=== PATIENT | male | born 1940 | race Caucasian/White ===

== ENCOUNTER 2019-02-11 20:33 | Emergency (ER) | payer MEDICARE, BC ==
[~2019-02-11] VITALS: Ht 170.2 cm; Wt 59.1 kg
[2019-02-11] MEDS ORDERED: LEVOTHYROXIN100 MC1 PO (20:50)
[2019-02-11] MEDS ORDERED: CITALOPRAM10 MG PO (20:50)
[2019-02-11] MEDS ORDERED: PEPCID20 MG PO (20:51)
--- NOTE | 2019-02-11 20:51 | NUR ---
BREATHING TREATMENT GIVEN WITH ALBUTEROL BACK TO BACK. BREATHING TECH. FOR GOOD DEPOSITION TO THE LUNGS.
[2019-02-11] MEDS ORDERED: FOLBEE PO (20:52)
[2019-02-11 20:59] LABS: HEMATOCRIT 37.3 % (39.0-50.0); HEMOGLOBIN 12.3 g/dl (14.0-18.0); IMMATURE GRANULOCYTES 0.4 % (0.0-5.0); MEAN CELL VOLUME 101.4 fL CALC (80.0-100.0); MEAN CORPUSCULAR HGB 33.4 pG CALC (26.0-32.0); NEUT# 4.22 thou/uL (1.82-7.42); RED BLOOD COUNT 3.68 mill/uL (4.70-6.10); RED CELL DISTRI WIDTH 12.6 % (11.5-15.5)
[2019-02-11 21:20] LABS: ALBUMIN 4.1 g/dL (3.2-5.0); ALKALINE PHOSPHATASE 89 u/l (38-126); ANION GAP 12 (6-22 (CALC)); BILIRUBIN, TOTAL 0.3 mg/dL (0.0-1.4); BUN 17 mg/dL (8-23); BUN/CREATININE RATIO 19 (12-20 (CALC)); CARBON DIOXIDE 29 mmol/l (22-30); CHLORIDE 103 mmol/l (95-108); CREATININE 0.9 mg/dL (0.7-1.3); GFR > 60 ML/MIN (>=60 (CALC)); GFR FOR AFR.AMER. > 60 ML/MIN (>=60 (CALC)); POTASSIUM 4.1 mmol/l (3.5-5.1); SGOT/AST 20 u/l (19-48); SODIUM 140 mmol/l (137-146); TOTAL PROTEIN 7.4 g/dL (6.3-8.2)
[2019-02-11 21:32] LABS: MYOGLOBIN 28 ng/mL (0 - 121)
[2019-02-11 21:35] VITALS: BP 124/73
[2019-02-11] MEDS ORDERED: ANORO ELLIPTA 61 AER IN (22:07)
[2019-02-11] MEDS ORDERED: PREDNISONE50 MG PO (22:07)
[2019-02-11] MEDS ORDERED: PROAIR HFA108 MCG/AC IN (22:07)
== END 2019-02-11 22:20 ==
LOC: ED 20:33
PROVIDERS: Family Medicine
DX: J44.1 Chronic obstructive pulmonary disease with (acute) exacerbation (principal); E03.9 Hypothyroidism, unspecified

== ENCOUNTER 2020-06-08 09:12 | Inpatient (IN) | payer MEDICARE, BC ==
[~2020-06-08] VITALS: Ht 170.2 cm; Wt 69.0 kg
[~2020-06-08 09:12] MED LIST: ANORO ELLIPTA 61 AER IN; CITALOPRAM10 MG PO; FOLBEE PO; LEVOTHYROXIN100 MC1 PO; PEPCID20 MG PO; PREDNISONE50 MG PO; PROAIR HFA108 MCG/AC IN
--- NOTE | 2020-06-08 10:00 | NUR ---
PT RESTING ON STRETCHER. RESP EVEN AND UNLABORED. SATS 90% RA. STATES HE WORE O2 OCCASIONALLY WHEN HE LIVED AT HOME BUT HAS NOT NEEDED IT IN THE MAXIM. HE HAS BEEN THERE A COUPLE OF MONTHS PER PT. STATES HE WAS NOT HUNGRY THIS MORNING AND THAT IS WHY HE DID NOT WANT TO EAT. PT IS A&OX3.
[2020-06-08 10:17] LABS: IMMATURE GRANULOCYTES 0.5 % (0.0-5.0); MEAN CELL VOLUME 103.9 fL CALC (80.0-100.0); MEAN CORPUSCULAR HGB 33.5 pG CALC (26.0-32.0); MEAN CORPUSCULAR HGB CONC 32.3 g/dL CAL (32.0-36.0); NEUT# 2.88 thou/uL (1.82-7.42); RED BLOOD COUNT 4.83 mill/uL (4.70-6.10); RED CELL DISTRI WIDTH 12.4 % (11.5-15.5)
[2020-06-08] MEDS ORDERED: B1 HIGH POTENC100 MG PO (10:18)
[2020-06-08] MEDS ORDERED: CETIRIZINE10 MG PO (10:18)
[2020-06-08] MEDS ORDERED: THERA M PLUS PO (10:20)
[2020-06-08 10:26] LABS: HEMATOCRIT 50.2 % (39.0-50.0); HEMOGLOBIN 16.2 g/dl (14.0-18.0)
[2020-06-08 10:43] LABS: ALKALINE PHOSPHATASE 62 u/l (38-126); BUN 27 mg/dL (8-23); BUN/CREATININE RATIO 24 (12-20 (CALC)); CHLORIDE 110 mmol/l (95-108); CREATININE 1.1 mg/dL (0.7-1.3); GFR > 60 ML/MIN (>=60 (CALC)); GFR FOR AFR.AMER. > 60 ML/MIN (>=60 (CALC)); POTASSIUM 4.2 mmol/l (3.5-5.1); SODIUM 140 mmol/l (137-146); TOTAL PROTEIN 7.6 g/dL (6.3-8.2)
--- NOTE | 2020-06-08 10:44 | NUR ---
EKG DONE PT WITHOUT APPARENT DISTRESS AT THIS TIME
[2020-06-08 10:46] LABS: ANION GAP 15 (6-22 (CALC)); BILIRUBIN, TOTAL 0.7 mg/dL (0.0-1.4); CARBON DIOXIDE 19 mmol/l (22-30); SGOT/AST 61 u/l (19-48)
--- NOTE | 2020-06-08 11:03 | NUR ---
PT REFUSED COVID AND FLU SWAB AWARE
--- NOTE | 2020-06-08 13:14 | NUR ---
PT ON THE EDGE OF THE BED PT REFUSES TO GO HIGHER UP DESPITE EDUCATION OF RISK OF FALLING
--- NOTE | 2020-06-08 14:47 | NUR ---
REPORT CALLED TO MS RAYNA VALENZUELA RN. SHE IS AWARE THAT MEDICATION AZITRHOMYCIN IS DELAY TO THIS NURSE ATTENDING OTHER SICK PATIENTS AND SHE WILL GIVE THE MEDICATION AFTER BOLUS IS DONE. PT IS HAS NO APPARENT DISTRESS AT THIS TIME
--- NOTE | 2020-06-08 15:00 | NUR ---
PT ARRIVED VIA WC TO [facility] ACCOMPANIED BY ED NURSE. A&O TO PERSON AND TIME. ORIENTED PT TO PLACE. WHEN ASKED WHERE HE LIVED HE SAID "[facility] ANYWHERE THAT YOU CAN THINK OF". STATES HE WEARS O2 VIA NC @3L PRN AT "HOME". LUISA SHERRI CALLED TO VERIFY, PER NURSE HE DOES WEAR O2 BUT IS UNSURE OF HOW MANY L/MIN. PT REPORTS BM "2 DAYS AGO NOT SURE", UNKOWN BY NURSE.PT REPORTS TO HAVE A "DECREASED APPETITE" BUT IS UNSURE. SKIN INTACT. FRONT END SPECIALIST IN PLACE, INITIAL READING SR 76. ASSESSMENT COMPLETED. DISCUSSED POC. PT VERABLIZED UNDERSTANDING. CALL LIGHT IN REACH. BED ALARM SET FOR SAFETY. CONTINUE TO MONITOR.
[2020-06-08 15:25] VITALS: BP 153/83
--- NOTE | 2020-06-08 18:40 | NUR ---
PT FOUND IN HALLWAY, CONFUSED, SOB NOTED, IV TAKEN OUT BY PT. O2 VIA RM @85%, O2 VIA NC @3L APPLIED. NEW IV INITIATED BY REJI VENEGAS.
[2020-06-08 20:35] VITALS: BP 141/81
--- NOTE | 2020-06-08 21:10 | NUR ---
ASSESSMENT COMPLETED AT THIS TIME. TELE MONITOR CONTACTS REPLACED AT THIS TIME. PT REFUSED LOVONOX SHOT AT THIS TIME. PT LOC TO SELF, AND TOWN. APPEARS SOMEWHAT CONFUSED TO CIRCUMSTANCE. BED ALARM AND CAMERA ARE ON FOR SAFETY MONITORING. DAY NURSES REPORTED EARLIER CONFUSION AND ROAMING THE HALLS, ALSO REPORTS THAT HE REMOVED IV AND DIVIDING MACHINE OPERATOR HELPER EARLIER. PT APPEARS CALM AT THIS TIME. REMINDED OF CALL LIGHT USAGE, PT DOES NOT RESPOND TO ORIENTATION.
--- NOTE | 2020-06-08 23:53 | NUR ---
PATIENT REFUSED MIDNIGHT VITALS. REPORTED TO NURSE.
[2020-06-08 23:55] VITALS: BP 147/75
--- NOTE | 2020-06-09 00:05 | NUR ---
PT SET OFF BED ALARM, PT VISUALIZED IN CAMERA ATTEMPTING TO GET OUT OF THE BED. UPON ENTERING THE ROOM, PT WAS SITTING ON THE SIDE OF THE BED. PT SOILED OF INCONTINENT URINE. BEDDING AND CLOTHES CHANGED, PT CLEANED OF INCONTINENT URINE. PT'S OWN CLOTHING PLACED IN BAG IN CABINET DUE TO BE SOILED OF URINE AND HOSPITAL GOWN PLACED ON PT. LEARNING CONSULTANT PLACED BACK ON PT. PO FLUIDS PROVIDED AND PT REMINDED OF CALL LIGHT USE. LIGHTS LEFT ON LOW FOR ORIENTATION. PT LEFT IN BED IN LOW FOWLERS POSITION WITH TWO BLANKETS FOR COMFORT.
--- NOTE | 2020-06-09 00:12 | NUR ---
PT CLEANED OF INCONTINENT URINE AT THIS TIME. PT TOLERATED WELL. V/S ASSESSED. DENIES ANY OTHER NEEDS AND ASSISTED COVERING WITH BLANKETS/REPORTS BEING COLD. BED ALARM AND CAMERA ON FOR SAFETY PRECAUTIONS.
[2020-06-09 04:12] VITALS: BP 156/71
--- NOTE | 2020-06-09 04:40 | NUR ---
BED ALARM SOUNDED AND PT VISUALIZED NOT IN THE BED VIA CAMERA. UPON ENTERING ROOM, PT WAS FOUND SITTING ON TOILET IN RESTROOM. I STAYED WITH PT FOR AWHILE, HE REPORTED WANTING TO SIT FOR AWHILE. I INSTRUCTED THE PT TO PULL THE RED CORD WHEN HE WAS READY TO GET UP, HE VERBALIZED AGREEMENT.
[2020-06-09 07:40] VITALS: BP 143/70
--- NOTE | 2020-06-09 07:40 | NUR ---
ASSESSMENT IS COMPLETED: IV SITE IS FREE FROM REDNESS OR EDEMA. HR IS REG,PULSES ARE STRONG X4, ABD IS SOFT WITH ACTIVE BS. BREATH SOUNDS ARE CLEAR BILATERALLY. TELE MONITOR IN PLACE. CONTINUE TO OSBERVE AND MONITOR
[2020-06-09 08:23] LABS: HEMATOCRIT 48.6 % (39.0-50.0); HEMOGLOBIN 15.9 g/dl (14.0-18.0); IMMATURE GRANULOCYTES 0.2 % (0.0-5.0); MEAN CORPUSCULAR HGB 33.7 pG CALC (26.0-32.0); MEAN CORPUSCULAR HGB CONC 32.7 g/dL CAL (32.0-36.0); NEUT# 2.94 thou/uL (1.82-7.42); RED BLOOD COUNT 4.72 mill/uL (4.70-6.10); RED CELL DISTRI WIDTH 12.5 % (11.5-15.5)
[2020-06-09 08:50] LABS: ALBUMIN 3.6 g/dL (3.2-5.0); ALKALINE PHOSPHATASE 59 u/l (38-126); BILIRUBIN, TOTAL 0.7 mg/dL (0.0-1.4); BUN 21 mg/dL (8-23); BUN/CREATININE RATIO 23 (12-20 (CALC)); C-REACTIVE PROTEIN 5.5 mg/dL (0-0.9); CHLORIDE 112 mmol/l (95-108); CREATININE 0.9 mg/dL (0.7-1.3); GFR > 60 ML/MIN (>=60 (CALC)); GFR FOR AFR.AMER. > 60 ML/MIN (>=60 (CALC)); POTASSIUM 4.4 mmol/l (3.5-5.1); SGOT/AST 58 u/l (19-48); SODIUM 142 mmol/l (137-146); TOTAL PROTEIN 6.5 g/dL (6.3-8.2)
[2020-06-09 08:57] LABS: ANION GAP 11 (6-22 (CALC)); CARBON DIOXIDE 23 mmol/l (22-30)
[2020-06-09 10:55] VITALS: BP 161/73
--- NOTE | 2020-06-09 12:00 | NUR ---
IV SITE IS FREE FROM REDNESS OR EDEMA. NO DISTRESS NOTED. PT IS RESTING IN BED WITH NO DISTRESS NOTED.
--- NOTE | 2020-06-09 12:54 | NUR ---
FAMILY FROM [place] [facility] CALLED AND CHECKED ON PT FOUND OUT FROM [facility] HE WAS HERE.
--- NOTE | 2020-06-09 13:03 | NUR ---
PT IS RESTING WITH EYES CLOSED. PER FAMILY PT DOES HAVE DEPRESSION.
[2020-06-09 15:15] VITALS: BP 173/79
--- NOTE | 2020-06-09 15:32 | NUR ---
O.T. Screen patient and at this time does not seem appropriate for O.T. or P.T. referral at this time.
--- NOTE | 2020-06-09 16:00 | NUR ---
PT IS RESTING IN BED NO APPETITE. ENCOURAGED TO DRINK FLUIDS. NOT WANTING TO EAT.
--- NOTE | 2020-06-09 16:20 | NUR ---
CHECKED WITH PT AND IS RESTING. INTRUCTED PT TO DRINK MORE FLUIDS. DUE TO DRYNESS ON HIS MOUTH.
[2020-06-09 19:10] VITALS: BP 151/75
--- NOTE | 2020-06-09 20:00 | NUR ---
REPORT RECEIEVED FROM DAY SHIFT. PT IN BED RESTING, A&O X 1, CONFUSED AND POSSIBLE SUN DOWNER. COOPERATIVE BUT DOES PULL AND TUG AT LINES. NO S/SX OF DISTRESS OR DISCOMFORT NOTED AT THIS TIME. TELE IN PLACE SHOWING SR WITH HR IN 60'S. #22G IN RAC, SALINE LOCKED- PATENT, CLEAN, DRY, AND DRESSING INTACT. WILL CONTINUE TO MONITOR.
[2020-06-09 23:50] VITALS: BP 155/77
--- NOTE | 2020-06-10 | NUR ---
PT IS RESTING IN BED, NO S/SX OF DISCOMFORT OR DISTRESSED NOTED AT THIS TIME, WILL CONTINUE TO MONITOR.
--- NOTE | 2020-06-10 04:00 | NUR ---
PT IS RESTING IN BED, NO S/SX OF DISCOMFORT OR DISTRESSED NOTED AT THIS TIME, WILL CONTINUE TO MONITOR.
[2020-06-10 04:45] VITALS: BP 164/74
[2020-06-10 06:39] LABS: MEAN CELL VOLUME 104.5 fL CALC (80.0-100.0); MEAN CORPUSCULAR HGB 33.4 pG CALC (26.0-32.0); RED BLOOD COUNT 5.54 mill/uL (4.70-6.10); RED CELL DISTRI WIDTH 12.6 % (11.5-15.5)
[2020-06-10 06:51] LABS: HEMATOCRIT 57.9 % (39.0-50.0); HEMOGLOBIN 18.5 g/dl (14.0-18.0)
[2020-06-10 07:05] LABS: ANION GAP 18 (6-22 (CALC)); BUN 21 mg/dL (8-23); BUN/CREATININE RATIO 24 (12-20 (CALC)); CARBON DIOXIDE 20 mmol/l (22-30); CHLORIDE 112 mmol/l (95-108); CREATININE 0.9 mg/dL (0.7-1.3); GFR > 60 ML/MIN (>=60 (CALC)); GFR FOR AFR.AMER. > 60 ML/MIN (>=60 (CALC)); POTASSIUM 4.8 mmol/l (3.5-5.1); SODIUM 144 mmol/l (137-146)
[2020-06-10 08:07] VITALS: BP 131/69
--- NOTE | 2020-06-10 08:07 | NUR ---
PT RESTING IN BED, NO SIGNS OF DISTRESS NOTED, RESP EVEN AND UNLABORED. PT ALERT AND ORIENTED X2, PAVEL RODRIGUEZ, DISCUSSED POC, PT HAS A FLAT AFFECT, PT VOICES NO NEEDS OR COMPLAINTS AT THIS TIME, PT NEEDS REINFORCMENT TO KEEP OXYGEN ON. ASSESSMENT COMPLETED, CALL LIGHT IN REACH,CONTINUE TO MONITOR.
[2020-06-10 10:50] VITALS: BP 136/69
--- NOTE | 2020-06-10 14:19 | NUR ---
PT RESTING IN BED, DISCUSSED IVF, PT VERBALIZED UNDERSTANDING. CALL LIGHT IN REACH,CONTINUE TO MONITOR.
--- NOTE | 2020-06-10 15:06 | NUR ---
PT RESTING IN BED WITH EYES CLOSED, EASILY AROUSED TO VERBAL STIMULI, DISCUSSED ANTIBIOTICS, PT AGREES, BED ALARM FOR SAFETY, CALL LIGHT IN REACH,CONTINUE TO MONITOR.
[2020-06-10 15:15] VITALS: BP 143/73
--- NOTE | 2020-06-10 19:35 | NUR ---
RECIEVED REPORT. PT RESTING IN SEMI FOLWERS POSITION. PT IS AWAKE, A&O X 3, VERY PLEASENT AND COOPERATIVE. ASSESSMENT COMPLETED & VS OBTAINED. RESP ARE NON-LABORED W/ NO S/SX OF DISCOMFORT OR DISTRESS PRESENT AT THIS TIME. LUNG SOUNDS ARE CLEAR. [address] @ 2L/MIN VIA NC, BUT DOES PULL IT OFF AT TIMES. NORMAL S1 & S2 HEART SOUNDS W/ REGULAR RATE & RHYTHM AND TELE IN PLACE SHOWING SB 54. RADIAL- BILAT STRONG AND BILAT PEDAL PULSES- PRESENT BUT WEAK WITH < 3 SEC CAP REFILL. #22G IN RAC- PATENT, CLEAN, DRY WITH DRESSING INTACT, NS 0.9% INFUSING @ 125ML/HR. PT DENIES ANY PAIN OR DISCOMFORT AT THIS TIME. SAFETY & ISOLATION MEASURE ARE IN PLACE, CALL LIGHT WITHIN REACH AND PT REMINDED TO CALL FOR ASSIST BEFORE GETTING UP. PT ON VISUAL MONITORING FOR SAFETY D/T RECENT EPISODES OF CONFUSION, ELEVATED FALL RISK D/T MULTIPLE LINES & CURRENT CONDITION. WILL CONTINUE TO MONITOR FOR COMFORT AND SAFETY.
[2020-06-10 20:45] VITALS: BP 157/74
[2020-06-11 00:10] VITALS: BP 145/63
--- NOTE | 2020-06-11 00:10 | NUR ---
PT IS RESTING IN BED, NO S/SX OF DISCOMFORT OR DISTRESSED NOTED AT THIS TIME, WILL CONTINUE TO MONITOR.
[2020-06-11 04:15] VITALS: BP 140/74
--- NOTE | 2020-06-11 05:21 | NUR ---
PT IS AWAKE LAYING BED IN SEMI-STEELE, NEEDING ASSISTING TO BATHROOM TO VOID. ONCE IN BED PT BEGAN HAVING A COUGHING SPASM AND HAVING DIFFICULTY SPEAKING, ELEVATED HOB RESP, GAVE INHALERS, BEGAN TO SETTLE DOWN, AND RESP ARE REGULAR AND NON-LABORED. NO FURTHER NEEDS EXPRESSED, NO S/SX OF DISTRESS OR DISCOMFORT, PT BACK IN BED RESTING. PT PLACED IN LOWEST POSITION W/ WHEELS LOCKED AND CALL LIGHT WITHIN REACH. WILL CONTINUE TO MONITOR.
[2020-06-11 07:11] LABS: IMMATURE GRANULOCYTES 0.6 % (0.0-5.0); MEAN CELL VOLUME 103.9 fL CALC (80.0-100.0); MEAN CORPUSCULAR HGB 33.3 pG CALC (26.0-32.0); MEAN CORPUSCULAR HGB CONC 32.1 g/dL CAL (32.0-36.0); NEUT# 2.54 thou/uL (1.82-7.42); RED BLOOD COUNT 4.86 mill/uL (4.70-6.10); RED CELL DISTRI WIDTH 12.5 % (11.5-15.5)
[2020-06-11 07:14] LABS: HEMATOCRIT 50.5 % (39.0-50.0); HEMOGLOBIN 16.2 g/dl (14.0-18.0)
[2020-06-11 07:26] LABS: ALBUMIN 3.6 g/dL (3.2-5.0); ALKALINE PHOSPHATASE 56 u/l (38-126); ANION GAP 10 (6-22 (CALC)); BILIRUBIN, TOTAL 0.6 mg/dL (0.0-1.4); BUN 23 mg/dL (8-23); BUN/CREATININE RATIO 27 (12-20 (CALC)); CARBON DIOXIDE 23 mmol/l (22-30); CHLORIDE 114 mmol/l (95-108); CREATININE 0.9 mg/dL (0.7-1.3); GFR > 60 ML/MIN (>=60 (CALC)); GFR FOR AFR.AMER. > 60 ML/MIN (>=60 (CALC)); POTASSIUM 4.7 mmol/l (3.5-5.1); SGOT/AST 46 u/l (19-48); SODIUM 142 mmol/l (137-146); TOTAL PROTEIN 6.6 g/dL (6.3-8.2)
[2020-06-11 07:29] LABS: C-REACTIVE PROTEIN 5.6 mg/dL (0-0.9)
[2020-06-11 10:00] VITALS: BP 124/54
--- NOTE | 2020-06-11 10:04 | NUR ---
pt lying in bed alert resp even and unlabored 02@2L via NC, denies pain, tolerated AM meds w/o difficulty, pt appears to be in no accute distress at this time
[2020-06-11 14:50] VITALS: BP 138/72
[2020-06-11 18:05] VITALS: BP 120/57
--- NOTE | 2020-06-11 19:42 | NUR ---
REPORT FROM JUANY DOBSON([facility]). ASSUMED PT CARE.
[2020-06-11 19:45] LABS: ANION GAP 12 (6-22 (CALC)); BUN 25 mg/dL (8-23); BUN/CREATININE RATIO 30 (12-20 (CALC)); CARBON DIOXIDE 22 mmol/l (22-30); CHLORIDE 113 mmol/l (95-108); CREATININE 0.9 mg/dL (0.7-1.3); GFR > 60 ML/MIN (>=60 (CALC)); GFR FOR AFR.AMER. > 60 ML/MIN (>=60 (CALC)); MAGNESIUM 2.8 mg/dL (1.6-2.3); POTASSIUM 4.4 mmol/l (3.5-5.1); SODIUM 142 mmol/l (137-146)
[2020-06-11 20:00] VITALS: BP 99/55
--- NOTE | 2020-06-11 21:57 | NUR ---
PT SOB AFTER AMBULATING TO BATHROOM WITH ASSISTANCE. PT ON 3L/M O2 VIA NC. RESPIRATIONS LABORED, O2 SATS CHECKED 89%. PRN INHALER ADMINISTERED. HOB ELEVATED TO 90 DEGREES. O2 INCREASED TO 4L/M VIA NC. SATS CURRENTLY 91-92%. PT VERY ANXIOUS AND SCARED. CALM REASSURANCE PROVIDED. LUNG SOUNDS DIMINISHED. CALL LIGHT WITHIN REACH. WILL CONTINUE TO MONITOR.
[2020-06-12] VITALS: BP 125/58
--- NOTE | 2020-06-12 01:55 | NUR ---
PT ASSISTED TO BATHROOM. BACK INTO BED PT BECAME SOB. O2 SATS 94% ON 4L/M VIA NC. PRN INHALER ADMINISTERED. ENCOURAGED BREATHING EXERCISES AND OFFERED CALM REASSURANCE. CALL LIGHT WITHIN REACH. WILL CONTINUE TO MONITOR.
[2020-06-12 04:00] VITALS: BP 127/62
[2020-06-12 05:53] LABS: HEMATOCRIT 48.6 % (39.0-50.0); HEMOGLOBIN 15.8 g/dl (14.0-18.0); IMMATURE GRANULOCYTES 0.8 % (0.0-5.0); MEAN CELL VOLUME 101.5 fL CALC (80.0-100.0); MEAN CORPUSCULAR HGB CONC 32.5 g/dL CAL (32.0-36.0); NEUT# 7.76 thou/uL (1.82-7.42); RED BLOOD COUNT 4.79 mill/uL (4.70-6.10); RED CELL DISTRI WIDTH 12.5 % (11.5-15.5)
[2020-06-12 06:09] LABS: ALBUMIN 3.6 g/dL (3.2-5.0); ALKALINE PHOSPHATASE 60 u/l (38-126); ANION GAP 14 (6-22 (CALC)); BILIRUBIN, TOTAL 0.6 mg/dL (0.0-1.4); BUN 23 mg/dL (8-23); BUN/CREATININE RATIO 27 (12-20 (CALC)); CARBON DIOXIDE 21 mmol/l (22-30); CHLORIDE 112 mmol/l (95-108); CREATININE 0.8 mg/dL (0.7-1.3); GFR > 60 ML/MIN (>=60 (CALC)); GFR FOR AFR.AMER. > 60 ML/MIN (>=60 (CALC)); POTASSIUM 4.1 mmol/l (3.5-5.1); SGOT/AST 44 u/l (19-48); SODIUM 144 mmol/l (137-146); TOTAL PROTEIN 6.7 g/dL (6.3-8.2)
--- NOTE | 2020-06-12 06:21 | NUR ---
PT RESTING IN BED. NO APPARENT DISTRESS NOTED. 02 @ 4L/M 02 VIA IL. SKI LIFT ATTENDANT IN PLACE. CALL LIGHT WITHIN REACH. WILL CONTINUE TO MONITOR.
[2020-06-12 08:20] VITALS: BP 144/69
--- NOTE | 2020-06-12 08:20 | NUR ---
ASSESSMENT IS COMPLETED: IV SITE IS FREE FROM REDNESS OR EDEMA. HR IS REG ,PULSES ARE STRONG X4, ABD IS SOFT WITH ACTIVE BS. CONITNUE TO OBSERVE AND MONITOR. TELE MONITOR IN PLACE.
[2020-06-12 10:30] VITALS: BP 92/65
--- NOTE | 2020-06-12 12:00 | NUR ---
PT IS SITTING IN THE CHAIR CONTINUE TO OSBERVE AND MONITOR.
--- NOTE | 2020-06-12 12:33 | NUR ---
IV SITE REMOVED DUE TO LEAKING
[2020-06-12 15:00] VITALS: BP 143/70
--- NOTE | 2020-06-12 15:50 | NUR ---
IV SITE REPLACED ON RAC AND THEN PT WENT BACK TO BED AND IV CAME OUT.
--- NOTE | 2020-06-12 16:30 | NUR ---
PT IS BACK IN TO BED.
--- NOTE | 2020-06-12 17:00 | NUR ---
IV SITE RESTARTED BY VEDA DOBSON. IN [facility] WITH #20 X2 ATTEMPTS.
[2020-06-12 20:00] VITALS: BP 148/79
--- NOTE | 2020-06-12 20:22 | NUR ---
PT MEDICATED AND ASSESSMENT COMPLETED AT THIS TIME. CALL LIGHT AT SIDE. PT REPORTS FEELING MILDLY SOB, OXYGEN SAT LEVEL 93% AT THIS TIME ON 3LNC. PT C/O FEELING ANXIOUS AND STATES THAT HE IS WAITING ON SOMETHING FOR ANXIETY. DAY NURSE HAS RECEIVED ORDER, WILL MEDICATE PT WHEN ORDERS RECEIVED FROM PHARMACY. TALKED WITH PT AND ATTEMPTED TO PROVIDED COMFORT AT THIS TIME. WILL CONTINUE TO MONITOR. ENCOURAGED PT TO CALL IF SOB WORSENS OR HE NEEDS ANY OTHER ASSISTANCE OR HAS OTHER CONCERNS, VERBALIZED UNDERSTANDING. CALL LIGHT AT SIDE AND BED ALARM IS ON FOR SAFETY REASONS.
--- NOTE | 2020-06-12 21:53 | NUR ---
MEDICATED PT FOR ANXIETY, PT IS NOW CALMLY LAYING IN BED ON HIS SIDE WITH NC IN PLACE @3L. NO S/O DISTRESS, DENIES FEELING SOB AT THIS TIME. CALL LIGHT AT SIDE.
[2020-06-13] VITALS (11 sets, daily range): BP systolic 112–182; BP diastolic 74–107
--- NOTE | 2020-06-13 01:40 | NUR ---
PT CALLED TO REPORT FEELING SOB, UPON ENTERING ROOM PT EXPRESSES THAT HE DOESN'T LIKE BEING ALONE AND HE WANTS SOMEONE WITH HIM. HE APPEARS ANXIOUS. I REASSURE HIM THAT WE ARE RIGHT OUTSIDE AT NURSES STATION AND IF HE NEEDS ANYTHING WE WILL BE RIGHT THERE. V/S ASSESSED. CALLED CT TO ASK IF THEY WERE ABLE TO TAKE PT FOR SCHEDULED CTA FROM [facility] THIS DAY. WILL TAKE PT DOWN, COOK 3 PASTRY'S NOTIFIED.
--- NOTE | 2020-06-13 01:50 | NUR ---
PT RETURNED FROM CTA, BACK IN BED, V/S ASSESSED AT THIS TIME.
[2020-06-13 05:47] LABS: HEMATOCRIT 48.1 % (39.0-50.0); IMMATURE GRANULOCYTES 1.3 % (0.0-5.0); MEAN CELL VOLUME 101.9 fL CALC (80.0-100.0); MEAN CORPUSCULAR HGB 33.9 pG CALC (26.0-32.0); MEAN CORPUSCULAR HGB CONC 33.3 g/dL CAL (32.0-36.0); NEUT# 6.25 thou/uL (1.82-7.42); RED BLOOD COUNT 4.72 mill/uL (4.70-6.10); RED CELL DISTRI WIDTH 12.9 % (11.5-15.5)
[2020-06-13 05:54] LABS: ALBUMIN 3.6 g/dL (3.2-5.0); ALKALINE PHOSPHATASE 61 u/l (38-126); ANION GAP 15 (6-22 (CALC)); BILIRUBIN, TOTAL 0.7 mg/dL (0.0-1.4); BUN 20 mg/dL (8-23); BUN/CREATININE RATIO 26 (12-20 (CALC)); C-REACTIVE PROTEIN 3.9 mg/dL (0-0.9); CARBON DIOXIDE 21 mmol/l (22-30); CHLORIDE 108 mmol/l (95-108); CREATININE 0.8 mg/dL (0.7-1.3); GFR > 60 ML/MIN (>=60 (CALC)); GFR FOR AFR.AMER. > 60 ML/MIN (>=60 (CALC)); POTASSIUM 4.5 mmol/l (3.5-5.1); SODIUM 140 mmol/l (137-146); TOTAL PROTEIN 6.6 g/dL (6.3-8.2)
[2020-06-13 06:04] LABS: SGOT/AST 84 u/l (19-48)
--- NOTE | 2020-06-13 09:00 | NUR ---
PT SEEN AT REST IN THE BED, ALERT AND ORIENTED X 3. PT WITH CLEAR BUT DIMINISHED LUNG SOUNDS, BECOMES DYSPNEIC WITH MINIMAL EXERTION. INITIAL SATS WERE 88% ON 3 LPM, SO BUMPED UP TO 4 LPM. RECHECK SHOWS 93%.
--- NOTE | 2020-06-13 11:30 | NUR ---
PT SEEN BY SERGIO DAVID AND DR BYERS THIS MORNING, AGREE THAT HE IS WORSE THAN YESTERDAY. PT NOW ON HIGH FLOW OXYGEN AT 10 LPM, SATS MID 90s. DR BYERS WANTS TO TRANSFER HIM TO ICU. PT AWARE AND AGREEABLE.
--- NOTE | 2020-06-13 12:45 | NUR ---
PT TAKEN BY BED TO ICU 8, REPORT WAS PROVIDED TO VEDA DOBSON PRIOR TO TRANSFER. PT REMAINS ON HIGH FLOW OXYGEN, SATS MID TO UPPER 90s.
--- NOTE | 2020-06-13 13:14 | NUR ---
REPORT RECEIVED FROM BRONSON WIGGINS. PT ARRIVED TO ROOM ICU 8 VIA BED AT 1249 WITH [facility] STAFF. ALERT AND ORIENTED X 3; SLIGHTLY ANXIOUS AND AGRICULTURAL AGENT PSYCHOLOGIST EDUCATIONAL'S HAND TIGHTLY. DENIES PAIN, SOB, NAUSEA. RESPIRATIONS EVEN AND UNLABORED ON 10L HUMIDIFIED OXYGEN VIA HIGH FLOW NC; DOES USE ACCESSORY MUSCLES TO BREATH. ORIENTED TO ROOM AND CONNECTED TO ATTACHMENTS. ASSESSMENT COMPLETED; LUNGS ARE CLEAR WITH EXPIRATORY COURSENESS TO RIGHT ANTERIOR. 20G IV SITE LAC; APPEARS HEALTHY AND FLUSHES. POC REVIEWED. PT ENCOURAGED TO VERBALIZE CONCERNS. SAFETY MEASURES IN PLACE; PT ON AIRBORNE/CONTACT PRECAUTIONS FOR POSITIVE COVID. CALL LIGHT SYSTEM REVIEWED AND WITHIN REACH.
--- NOTE | 2020-06-13 13:42 | NUR ---
BROTHER DENNISE AND SISTER BHUPENDRA UPDATED ON THE PHONE; QUESTIONS ANSWERED TO SATISFACTION.
--- NOTE | 2020-06-13 15:45 | NUR ---
PT MORE ANXIOUS; REMOVED FINGER PROBE FOR OXYGEN MONITORING AND BLOOD PRESSURE CUFF. WAVING TO NURSE AND ASKING FOR HELP STATING THAT HE FEELS LIKE HE CAN'T BREATH. RESPIRATIONS EVEN AND UNLABORED; SPO2 95% ON THE 10L. SCHEDULED VENTOLIN INHALER GIVEN ALONG WITH ATIVAN FOR ANXIETY. ROCEPHIN INFUSING AT THIS TIME. CALL LIGHT WITHIN REACH.
--- NOTE | 2020-06-13 17:47 | NUR ---
PT LESS ANXIOUS, BUT REMAINS RESTLESS AND AGAIN REMOVED OXYGEN PROBE AND BLOOD PRESSURE CUFF. DECLINES DINNER AT THIS TIME; TRAY LEFT AT BEDSIDE.
--- NOTE | 2020-06-13 21:00 | NUR ---
awake. confused. thinks he's [facility] reoriented. o2 @ director of cardiac rehabilitation off-replaced. has nonprod cough. instructed about cough etiquette. director of cardiac rehabilitation shows sinus ebnji pvcs hr 58. #20 lac saline lock. refused po fluids. voided incont. jalen care given. lorrie cortez. fall & air/contact precautions & bed alarm cont.
[2020-06-14] VITALS (16 sets, daily range): BP systolic 104–185; BP diastolic 65–91
--- NOTE | 2020-06-14 00:01 | NUR ---
eyes closed. nad. cardiac nurse practitioner shows sinus benji pvcs hr 50.
--- NOTE | 2020-06-14 02:00 | NUR ---
resting quietly. resps even & unlabored. o2 cont.
--- NOTE | 2020-06-14 04:00 | NUR ---
bed alarm sounding. pt standing @ bedside o2 off. sao2 84%. c/o sob. o2 replaced. assisted back to bed. o2 94%.
--- NOTE | 2020-06-14 06:00 | NUR ---
coughing. sao2 84%. after resting sao2 93%.
--- NOTE | 2020-06-14 08:00 | NUR ---
PT SEEN AT REST IN THE BED. HE IS NOT HUNGRY, SO BREAKFAST REMAINS AT BEDSIDE. PRODUCTIVE COUGH HEARD OCCASIONALLY, RESULTS IN WHEEZING THROUGHOUT LUNG CALDERON. PT IS ALERT AND ORIENTED X 3, ALTHOUGH PERHAPS A BIT CONFUSED AT TIMES. HIGH FLOW NC AT 10 LPM, PT SATS IN THE MID 90s.
--- NOTE | 2020-06-14 20:00 | NUR ---
PATIENT RESTING IN BED AT THIS TIME. NOT ANXIOUS. RESPIRATIONS EVEN O2 VIA N/C IN PLACE AT 10 LITER PER MINUTE. ALERT TO SELF. PLEASANT. NO VAD. ATTEMPTED #24 R HAND WITHOUT SUCCESS. TOLERATED WELL. DENIES PAIN. SKIN COOL AND DRY. POSITIVE FOR COVID. AIR/CONTACT PRECAUTIONS IN PLACE. BED IN LOW POSITION. CALL LIGHT WITHIN REACH.
--- NOTE | 2020-06-14 22:10 | NUR ---
PATIENT RESTING QUIETLY IN BED. NO ACUTE DISTRESS NOTED. LOVENOX GIVEN. TOLERATED WELL. BED IN LOW POSITION CALL LIGHT WITHIN REACH.
[2020-06-15] VITALS (17 sets, daily range): BP systolic 118–179; BP diastolic 65–96
--- NOTE | 2020-06-15 | NUR ---
RESPIRATORY CALLED. PATIENT PLACED ON NON-REBREATHER MASK. OXYGEN SATURATION MAINTAINING IN LOW 90S. NO DISTRESS OBSERVED. MONITOIRING.
--- NOTE | 2020-06-15 | NUR ---
PATIENT RESTING IN BED. O2 SATURATION MAINTAINING ABOVE 90%. NO COMPLAINTS. BED IN LOW POSITION. CALL LIGHT WITHIN REACH. MONITORING.
--- NOTE | 2020-06-15 02:00 | NUR ---
RESTING QUIETLY. O2 VIA NC IN PLACE. MAINTAINGING OXYGENATION IN THE 90S. NO ACUTE DISTRESS OBSERVED. MONITORING.
--- NOTE | 2020-06-15 04:12 | NUR ---
RESTING QUIETLY, SIDELYING POSITION. OXYGEN MAINTAINING IN 90S. NO ACUTE DISTRESS OBSERVED. MONITORING
[2020-06-15 05:54] LABS: HEMATOCRIT 47.4 % (39.0-50.0); HEMOGLOBIN 15.6 g/dl (14.0-18.0); IMMATURE GRANULOCYTES 1.2 % (0.0-5.0); MEAN CELL VOLUME 99.2 fL CALC (80.0-100.0); MEAN CORPUSCULAR HGB 32.6 pG CALC (26.0-32.0); MEAN CORPUSCULAR HGB CONC 32.9 g/dL CAL (32.0-36.0); NEUT# 5.94 thou/uL (1.82-7.42); RED BLOOD COUNT 4.78 mill/uL (4.70-6.10); RED CELL DISTRI WIDTH 12.1 % (11.5-15.5)
--- NOTE | 2020-06-15 06:00 | NUR ---
RESTING SEMI-FOWLERS. PLEASANT. CALM. O2 10 LITERS VIA N/C. OXYGEN SATURATION MAINTAINING IN THE 90S.
[2020-06-15 06:30] LABS: ALBUMIN 3.4 g/dL (3.2-5.0); ALKALINE PHOSPHATASE 58 u/l (38-126); ANION GAP 13 (6-22 (CALC)); BILIRUBIN, TOTAL 0.7 mg/dL (0.0-1.4); BUN 23 mg/dL (8-23); BUN/CREATININE RATIO 30 (12-20 (CALC)); C-REACTIVE PROTEIN 1.6 mg/dL (0-0.9); CARBON DIOXIDE 21 mmol/l (22-30); CHLORIDE 109 mmol/l (95-108); CREATININE 0.7 mg/dL (0.7-1.3); GFR > 60 ML/MIN (>=60 (CALC)); GFR FOR AFR.AMER. > 60 ML/MIN (>=60 (CALC)); POTASSIUM 4.4 mmol/l (3.5-5.1); SGOT/AST 53 u/l (19-48); SODIUM 139 mmol/l (137-146); TOTAL PROTEIN 6.4 g/dL (6.3-8.2)
--- NOTE | 2020-06-15 07:25 | NUR ---
REPORT RECEIVED FROM BRONSON DRAPER. PT RESTING IN BED SEMI FOWLERS; ALERT AND ORIENTED TO PERSON AND PLACE. DENIES PAIN. RESPIRATIONS EVEN AND UNLABORED ON 10L HIGH FLOW NC; PT VERY RESTLESS AND ANXIOUS. NO CURRENTLY IV SITE. SR WITH PVC'S ON STRATEGIC MANAGER. LUNGS ARE CLEAR; PRODUCTIVE COUGH NOTED. SAFETY MEASURES IN PLACE. CALL LIGHT WITHIN REACH.
--- NOTE | 2020-06-15 08:20 | NUR ---
DR. WARD AT BEDSIDE FOR EVAL.
--- NOTE | 2020-06-15 08:30 | NUR ---
NEW IV SITE TO RAC PLACED AT THIS TIME; PT TOLERATED WELL.
--- NOTE | 2020-06-15 09:01 | NUR ---
ATIVAN GIVEN IV WITH AM MEDS. PT TOOK PO MEDS WHOLE WITH WATER. SET UP FOR BREAKFAST, BUT PT DOES NOT FEED HIMSELF EVEN WITH ENCOURAGMENT. HE STATES, "HELP ME. NURSE PLEASE HELP ME." GIVEN A FEW BITES OF BREAKFAST WHICH HE EATS, BUT DOES NOT CONTINUE TO FEED HIMSELF EVEN WITH VERBAL CUES AND INSTRUCTION.
--- NOTE | 2020-06-15 11:00 | NUR ---
PT CONSTANTLY REMOVING TELEMETRY LEADS, OXYGEN, AND ALL ATTACHMENTS INCLUDING GOWN AND BRIEF. STAFF FREQUENTLY AT BEDSIDE TO REPLACE ALL ATTACHENTS AND INSTRUCT PT TO LEAVE EVERYTHING IN PLACE. PT VERBALIZES UNDERSTANDING AND APOLOGIZES, BUT IS FORGETFUL AND CONTINUES TO REMOVE WIRES.
--- NOTE | 2020-06-15 13:00 | NUR ---
PT HAS LEGS OUT OF THE BED AND STATES, "HELP ME, I CAN'T BREATH." OXYGEN HAS BEEN REMOVED BY PATIENT; EDUCATED THAT OXYGEN IS WHAT HELPS HIS BREATH. PT ALSO C/O THAT HE IS COLD, HOWEVER, HE REMOVED ALL HIS BLANKETS AND GOWN AND IS NAKED; EDUCATED THAT KEEPING HIS CLOTHING AND BLANKETS ON WOULD HELP HIM STAY WARM; PT UNABLE TO REMEMBER DUE TO COGNITIVE LIMITATIONS AT THIS TIME. NEW ORDER RECEIVED FOR A ONE TIME DOSE OF ATIVAN IV. PT REPOSITIONED BACK INTO BED WITH BLANKETS ON AND ATTACHMENTS INTACT.
--- NOTE | 2020-06-15 15:10 | NUR ---
ATIVAN GIVEN IV AT THIS TIME. ANTIBIOTICS AND REMDESIVIR HAVE INFUSING WITHOUT DIFFICULTY; IV SITE APPEARS HEALTHY AND FLUSHES. WILL CONTINUE TO MONITOR.
--- NOTE | 2020-06-15 18:07 | NUR ---
PT LOUDLY COUGHING AND HACKING. OXYGEN REMOVED AT THIS TIME; SPO2 85% ON ROOM AIR. NOTIFYING GUT SORTER HAT FORMING MACHINE OPERATOR.
--- NOTE | 2020-06-15 19:20 | NUR ---
PT IN BED, REMOVED O2 AND LEADS, REPLACED O2 AND LEADS, ENCOURAGED PT TO NOT REMOVE OXYGEN, PT PUSHING WRITERS HANDS AWAY, NO SIGNS OF DISTRESS NOTED, SPO2 INCREASED TO 94% ON 10L HI CARLITOS, DISCUSSED POC, PT REQUIRES REINFORCMENT, PT IS NOT COMPLAINT AT THIS TIME, ZYPREXA IM GIVEN. ASSESSMENT COMPLETED, CALL LIGHT IN REACH,CONTINUE TO MONITOR.
--- NOTE | 2020-06-15 20:00 | NUR ---
PT KEEPS REMOVING OXYGEN AND PULLING OFF LEADS AND BRIEF, SOON WIRES ARE REPLACED AND MEETING FACILITATOR LEAVES ROOM PT AGAIN REMOVES ALL LEADS AND OXYGEN. CALL LIGHT IN REACH, CONTINUE TO MONITOR.
--- NOTE | 2020-06-15 21:00 | NUR ---
CALL MADE TO ELECTRONIC GAME DEVELOPER CODING AND REIMBURSEMENT SPECIALIST, INFORMED THAT ZYPREXA GIVEN AT 1920 HAS NOT HELPED. PT CONTINUES TO PULL LINES AND PUSH AWAY STAFF HANDS WHEN ATTEMPTING TO REPLACE LEADS AND OXYGEN. ORDERS TO RESTRAIN PT OBTAINED.
--- NOTE | 2020-06-15 21:05 | NUR ---
PT RESTING IN BED, O2 IS ON PT'S CHIN, LEADS ARE OFF, BRIEF IS OFF, INFORMED PT THAT HE WILL BE RESTRAINED DUE TO HIS NON COMPLIANCE OF LEAVING HIS OXYGEN ON. PT REPOSITIONED AND PLACED ON SOFT WRIST RESTRAINTS, TOLERATED WELL, CALL LIGHT IN REACH,CONTINUE TO MONITOR.
--- NOTE | 2020-06-15 21:10 | NUR ---
CALL MADE TO PT'S BROTHER DENNISE AND NOTIFIED THAT PT WAS PLACED ON WRIST RESTRAINTS, BROTHER STATES," DO WHAT YOU HAVE TO DO." BROTHER UPDATED ON PT STATUS.
[2020-06-16] VITALS (16 sets, daily range): BP systolic 101–165; BP diastolic 54–94
--- NOTE | 2020-06-16 | NUR ---
PT RESTING IN BED, NO SIGNS OF DISTRESS NOTED, RESP EVEN AND UNLABORED. PT IS HAS HIS LEGS CROSSED IN BED, SOFT WRIST RESTRAINTS BILAT. CALL LIGHT IN REACH,CONTINUE TO MONITOR.
--- NOTE | 2020-06-16 04:00 | NUR ---
PT RESTING IN BED, NO SIGNS OF DISTRESS NOTED, RESP EVEN AND UNLABORED. CALL LIGHT IN REACH,CONTINUE TO MONITOR.
--- NOTE | 2020-06-16 05:06 | NUR ---
PT RESTING IN BED, PT SOMEHOW REMOVED O2 WHILE RESTRAINED. SPO2 DROPPED TO 79% 02 REPLACED. SYNTHROID AND WATER PROVIDED. PT TOLERATED WELL, VENTOLIN INHALER GIVEN. PT VOICES NO NEEDS OR COMPLAINTS AT THIS TIME, CALL LIGHT IN REACH,CONTINUE TO MONITOR.
[2020-06-16 06:24] LABS: HEMATOCRIT 51.8 % (39.0-50.0); IMMATURE GRANULOCYTES 1.3 % (0.0-5.0); MEAN CELL VOLUME 102.6 fL CALC (80.0-100.0); MEAN CORPUSCULAR HGB 33.7 pG CALC (26.0-32.0); MEAN CORPUSCULAR HGB CONC 32.8 g/dL CAL (32.0-36.0); NEUT# 8.88 thou/uL (1.82-7.42); RED BLOOD COUNT 5.05 mill/uL (4.70-6.10); RED CELL DISTRI WIDTH 12.4 % (11.5-15.5)
--- NOTE | 2020-06-16 06:45 | NUR ---
REPORT RECEIVED FROM KAVITHA VENEGAS. CARE ASSUMED.
[2020-06-16 06:55] LABS: ALBUMIN 3.7 g/dL (3.2-5.0); ALKALINE PHOSPHATASE 67 u/l (38-126); ANION GAP 16 (6-22 (CALC)); BUN 24 mg/dL (8-23); BUN/CREATININE RATIO 32 (12-20 (CALC)); CARBON DIOXIDE 19 mmol/l (22-30); CHLORIDE 110 mmol/l (95-108); CREATININE 0.8 mg/dL (0.7-1.3); GFR > 60 ML/MIN (>=60 (CALC)); GFR FOR AFR.AMER. > 60 ML/MIN (>=60 (CALC)); POTASSIUM 4.8 mmol/l (3.5-5.1); SGOT/AST 59 u/l (19-48); SODIUM 141 mmol/l (137-146); TOTAL PROTEIN 6.9 g/dL (6.3-8.2)
--- NOTE | 2020-06-16 07:30 | NUR ---
DR WARD AT BEDSIDE AT THIS TIME.
--- NOTE | 2020-06-16 07:50 | NUR ---
PT RESTING IN BED AWAKE AT THIS TIME. PT IS ALERT AND ORIENTED TO SELF. SHIFT ASSESSMENT COMPLETED AT THIS TIME. IV PATENT X1. PT IS RESTRAINED BILAT WRIST FOR PT SAFETY DUE TO HE PULLS OFF O2 AND DESATS. CALL LIGHT IN REACH. WILL CONTINUE TO MONITOR.
--- NOTE | 2020-06-16 10:00 | NUR ---
PT RESTING IN BED AWAKE AND WATCHING TV. VSS ON MONITOR. RESP ARE EVEN AND UNLABORED. NO DISTRESS NOTED. CALL LIGHT IN REACH. WILL CONTINUE TO MONITOR.
--- NOTE | 2020-06-16 12:22 | NUR ---
PT RESTING IN BED AWAKE AT THIS TIME. PT WITH A PRODUCTIVE COUGH. PT MEDICATED PER SEP. CALL LIGHT IN REACH. WILL CONTINUE TO MONITOR.
--- NOTE | 2020-06-16 14:26 | NUR ---
RT AT BEDSIDE FOR ABG.PT HAS INCREASED CONFUSION NOTED AT THIS TIME. WILL CONTINUE TO MONITOR.
--- NOTE | 2020-06-16 15:35 | NUR ---
PT IV NOTED TO BE LEAKING. RAC IV DC'D. #22 STARTED IN . PT TOLERATED WELL.
--- NOTE | 2020-06-16 16:40 | NUR ---
PT RESTING IN BED COMFORTABLY WITH WARM. VSS ON MONITOR. CALL LIGHT IN REACH. WILL CONTINUE TO MONITOR.
--- NOTE | 2020-06-16 17:15 | NUR ---
CALLED [facility] FOR THIS PT. SPOKE TO MJ AND WAS GIVEN CONFIRMATION NUMBER [id number].
--- NOTE | 2020-06-16 18:07 | NUR ---
PT RESTING IN BED WATCHING TV. RESP ARE EVEN AND UNLABORED. NO DISTRESS NOTED. CALL LIGHT IJN REACH. WILL CONTINUE TO MONITOR.
--- NOTE | 2020-06-16 19:30 | NUR ---
sitting on side of bed. cardiac cath lab technologist & o2 off-replaced. has nonprod cough. no resp distress. cardiac cath lab technologist shows sinus rhythm pvcs hr 84. #22 lt thumb saline lock. incont of urine. jalen care & diaper changed. fall & air/contact precautions cont.
--- NOTE | 2020-06-16 22:00 | NUR ---
eyes closed. no distress. pvc monitor shows sinus rhythm pvcs hr 80.
[2020-06-17] VITALS (17 sets, daily range): BP systolic 100–156; BP diastolic 47–82
--- NOTE | 2020-06-17 00:01 | NUR ---
eyes closed. no distress. athletic monitor shows sinus rhythm hr 74.
--- NOTE | 2020-06-17 02:00 | NUR ---
resting quietly. resps even & unlabored. nad. o2 cont.
--- NOTE | 2020-06-17 04:00 | NUR ---
eyes closed. nad. media monitor shows sinus rhythm hr 78.
--- NOTE | 2020-06-17 06:00 | NUR ---
no acute change in condition this shift.
--- NOTE | 2020-06-17 08:18 | NUR ---
PT RESTING QUIETLY ON BED, REFUSING BREAKFAST AT THIS TIME., VITAL SIGNS STABLE
--- NOTE | 2020-06-17 10:29 | NUR ---
PT GIVEN COMPLETE BED CHANGE AND BATH,
--- NOTE | 2020-06-17 12:57 | NUR ---
PT APPEARS TO BE CALMER THAN BEFORE. BLANKET GIVEN AFTER PULLING OFF CLOTHES AND MONITER LEADS FOR 3RD TIME THIS AM. VITAL SIGNS STABLE
--- NOTE | 2020-06-17 14:45 | NUR ---
CONSENT SIGNED AFTER VERBAL CONSENT BY PT FOR CENTRAL LINE. DR. WILLINGHAM CAME FROM ER TO PLACED CENTRAL LINE IN RIGHT GROIN AREA.
--- NOTE | 2020-06-17 16:32 | NUR ---
PT SLEEPING ON LEFT SIDE AT THIS TIME, VITAL SIGNS STABLE,
--- NOTE | 2020-06-17 20:00 | NUR ---
awake. remains confused. pt said "i don't know what's wrong with me." instructed pt about covid but doesn't undertsand. o2 cont per nc. pt has removed o2 several times & has been replace. cough is worse tonight. has prod cough of old blood tinged sputum. threat monitoring analyst shows sinus rhythm. rt groin tlc in place & saline locked. po fluids taken poor. voids per urinal & incont-diaper in place. fall & air/contact precautions cont.
--- NOTE | 2020-06-17 22:00 | NUR ---
awake. remains confused. voided per urinal. ekg monitor shows sinus rhythm hr78.
[2020-06-18] VITALS (15 sets, daily range): BP systolic 102–165; BP diastolic 58–94
--- NOTE | 2020-06-18 00:01 | NUR ---
awake. confused. o2 off-replaced. unable to reorient. bed alarm cont.
--- NOTE | 2020-06-18 02:00 | NUR ---
naps for short intervals. o2 cont. ink technician shows sinus rhythm hr 82.
--- NOTE | 2020-06-18 02:15 | NUR ---
central line dsg off-replaced.
--- NOTE | 2020-06-18 04:30 | NUR ---
blood drawn & sent to lab.
[2020-06-18 05:53] LABS: HEMATOCRIT 48.7 % (39.0-50.0); HEMOGLOBIN 16.1 g/dl (14.0-18.0); IMMATURE GRANULOCYTES 1.3 % (0.0-5.0); MEAN CELL VOLUME 100.2 fL CALC (80.0-100.0); MEAN CORPUSCULAR HGB 33.1 pG CALC (26.0-32.0); MEAN CORPUSCULAR HGB CONC 33.1 g/dL CAL (32.0-36.0); NEUT# 9.29 thou/uL (1.82-7.42); RED BLOOD COUNT 4.86 mill/uL (4.70-6.10); RED CELL DISTRI WIDTH 12.4 % (11.5-15.5)
--- NOTE | 2020-06-18 06:00 | NUR ---
slept little this shift. turn machine operator shows sinus rhythm.
[2020-06-18 06:25] LABS: ALBUMIN 3.4 g/dL (3.2-5.0); ALKALINE PHOSPHATASE 69 u/l (38-126); ANION GAP 13 (6-22 (CALC)); BILIRUBIN, TOTAL 1.2 mg/dL (0.0-1.4); BUN 27 mg/dL (8-23); BUN/CREATININE RATIO 29 (12-20 (CALC)); C-REACTIVE PROTEIN 2.7 mg/dL (0-0.9); CHLORIDE 109 mmol/l (95-108); CREATININE 0.9 mg/dL (0.7-1.3); GFR > 60 ML/MIN (>=60 (CALC)); GFR FOR AFR.AMER. > 60 ML/MIN (>=60 (CALC)); POTASSIUM 4.2 mmol/l (3.5-5.1); SGOT/AST 39 u/l (19-48); SODIUM 142 mmol/l (137-146); TOTAL PROTEIN 6.2 g/dL (6.3-8.2)
[2020-06-18 06:28] LABS: CARBON DIOXIDE 24 mmol/l (22-30)
--- NOTE | 2020-06-18 07:30 | NUR ---
PATIENT IN BED ALERT TO SELF AND REDIRECTABLE AT THIS TIME. O2 ON AT 10L. ALL SAFETY MEASURES ARE IN PLACE CALL LIGHT WITHIN REACH. PATIENT STATES WHEN ASKED IF HE IS HAVING PAIN PATIENT STATED "NO". CALL LIGHT WITHIN REACH SIDERAILS UP X2.
--- NOTE | 2020-06-18 09:30 | NUR ---
PATIENT IN BED AT THIS TIME O2 ON AT 10L ALERT TO SELF, SIDERAILS UP X 2 CALL LIGHT WITHIN REACH.
--- NOTE | 2020-06-18 09:43 | NUR ---
AT BEDSIDE DISCUSSING POC WITH PT.
--- NOTE | 2020-06-18 11:15 | NUR ---
PATIENT RESTING COMFORTABLE IN BED AT THIS TIME. 02 ON AT 10L. ALL SAFETY MEASURES ARE IN PLACE CALL LIGHT WITHIN REACH SIDERAILS UP X2. PATIENT HAS A NON-PRODUCTIVE COUGH AT THIS TIME.
--- NOTE | 2020-06-18 12:00 | NUR ---
PATIENT IN BED AT THIS TIME O2 REMAINS ON AT 10L. SPO2 IS 90%. PATIENT SELF FEEDING WITHOUT ASSISTANCE AND TOLERATING DIET WELL.
--- NOTE | 2020-06-18 14:00 | NUR ---
PATIENT ALERT TO SELF AT THIS TIME. O2 ON AT THIS TIME AT 10 L. PATIENT DENIES ANY PAIN. ALL SAFETY MEASURES ARE IN PLACE CALL LIGHT NEAR. CENTAL LINE (TRIPLE LUMEN) INTACT AND FLUSHING WITHOUT RESISTANCE. CALL LIGHT NEAR SIDERAILS UP X 2.
--- NOTE | 2020-06-18 15:05 | NUR ---
PATIENT IN BED AT THIS TIME CALL LIGHT NEAR SIDERAILS UP X 2. PATIENT DENIES ANY PAIN AT THIS TIME. PATIENT REPOSITIONED AT THIS TIME.
--- NOTE | 2020-06-18 15:51 | NUR ---
PATIENT IN BED AT THIS TIME. ALERT TO SELF. 02 ON AT 10 L AT THIS TIME. CENTRAL LINE (TRIP LUMEN) PATENT AND FLUSH WITHOUT RESISTANCE. CALL LIGHT WITHIN REACH, SIDERAILS UP X 2
--- NOTE | 2020-06-18 17:30 | NUR ---
PATIENT RESTING IN BED AT THIS TIME. O2 REMAINS ON AT 10L, ALL SAFETY MEASURES ARE IN [place] CALL LIGHT WITHIN REACH, SIDERAILS UP X2
--- NOTE | 2020-06-18 18:10 | NUR ---
PATIENT RESTING IN BED AT THIS TIME. O2 REMAINS IN PLACE AT THIS TIME AT 10L. ALL SAFETY MEASURES ARE IN PLACE CALL LIGHT WITHIN REACH.
--- NOTE | 2020-06-18 19:45 | NUR ---
awake. o2 off-replaced. remains confused. branch assistant shows sinus rhythm hr 82. rt groin tlc saline lock in place & flushes well. po fluids encouraged & juan carlos fair. voids incont. diaper changed. fall & air/contact precautions cont.
--- NOTE | 2020-06-18 20:35 | NUR ---
robitussin 10cc po given for cough.
--- NOTE | 2020-06-18 22:00 | NUR ---
eyes closed. no distress. [employer] assistant principal shows sinus rhythm hr 60.
[2020-06-19] VITALS (20 sets, daily range): BP systolic 105–164; BP diastolic 55–93
--- NOTE | 2020-06-19 00:01 | NUR ---
eyes closed. nad. o2 cont. groundwater monitoring technician shows sinus rhythm hr 62.
--- NOTE | 2020-06-19 02:00 | NUR ---
resting quietly. resps even & unlabored. nad. o2 cont.
--- NOTE | 2020-06-19 04:00 | NUR ---
resting quietly. resps even & unlabored. nad. rn cardiac rehab shows sinus benji hr 50.
--- NOTE | 2020-06-19 06:00 | NUR ---
eyes closed. nad. bus monitor shows sinus benji hr 50.
--- NOTE | 2020-06-19 07:05 | NUR ---
PATIENT IN BED AT THIS TIME O2 ON AT 10L. PATIENT ALERT TO SELF ONLY. ALL SAFETY MEASURES ARE IN PLACE CALL LIGHT WITHIN REACH SIDERAILS UP X 2. WHEN ASKED PATIENT STATES HE HAS NO PAIN AT THIS TIME. TRIPLE LUMEN IN R GROIN INTACT AND FLUSHING. NO IV SITE S/S OF INFECTION NOTED AT THIS TIME.
--- NOTE | 2020-06-19 09:00 | NUR ---
PATIENT RESTING QUIETLY IN BED EYES OPEN AND DENIES ANY PAIN. [address] AT 10L. ALL SAFETY MEASURES ARE IN PLACE CALL LIGHT WITHIN REACH SIDERAILS UP X 2.
--- NOTE | 2020-06-19 11:50 | NUR ---
PATIENT RESTING IN BED CALL LIGHT WITHIN REACH O2 ON AT 10L PATIENT ALERT TO SELF DENIES ANY PAIN WHEN ASKED AT THIS TIME.
--- NOTE | 2020-06-19 14:04 | NUR ---
PATIENT IN BED AT THIS TIME. O2 REMAINS ON AT 10L. PATIENT DENIES ANY PAIN AT THIS TIME. PATIENT TRIPLE LUMEN FLUSHED WITHOUT ISSUES AND BLOOD RETURN AVAILABLE. PATIENT INCONTINENT OF URINE AND CHANGED AND REPOSTIONED AT THIS TIME. CALL LIGHT WITHIN REACH SIDERAILS UP X 2.
--- NOTE | 2020-06-19 15:27 | NUR ---
PATIENT COUGHING A NON PRODUCTIVE COUGH AT THIS TIME MEDICATED PATIENT WITH 10ML OF GUAIFENESIN AT THIS TIME FOR HIS COUGH.
--- NOTE | 2020-06-19 15:50 | NUR ---
PATIENT IN BED RESTING WITH EYES OPEN AT THIS TIME. PATIENT STATES COUGH IS BETTER. PATIENT DENIES SHORTNESS OF BREATH AND ALL SAFETY PRECAUTIONS ARE IN PLACE AT THIS TIME.
--- NOTE | 2020-06-19 16:08 | NUR ---
PATIENT RESTING AT THIS TIME ALL SAFETY MEASURES ARE IN PLACE O2 ON 10L AT THIS TIME SPO2 94%. CALL LIGHT WITHIN REACH SIDERAILS UP X2.
--- NOTE | 2020-06-19 18:12 | NUR ---
PATIENT SITTING UP IN BED EATING AT THIS TIME. O2 AT 10L REMAINS ON AND SPO2 IS 90 % TIMES NEED TO REDIRECT PATIENT TO LEAVE TUBING ALONE AND IN PLACE. PATIENT DENIES ANY PAIN AT THIS TIME AND DOES EXHIBITS DRY NON PRODUCTIVE COUGH INTERMITTINGLY. ALL SAFETY MEASURES ARE IN PLACE CALL LIGHT WITHIN REACH AND SIDERAILS UP X 2. PATIENT IN STABLE CONDITION FOR ON COMING NURSE.
--- NOTE | 2020-06-19 20:02 | NUR ---
ASSESSMENT COMPLETED. VSS. PT. IS ON 11LITERS/MIN HF PER NC AND SPO2 92%; WILL CONTINUE TO MONITOR. PT. IS ON AIR MATTRESS AND ASSISTED TO REPOSITION IN BED. NO DISTRESS NOTED; NON-PRODUCTIVE COUGH NOTED. PT. CLEANED OF A MODERATE INCONTINENCE OF URINE. PO FLUIDS OFFERED. CALL LIGHT IS IN REACH. WILL CONTINUE TO MONITOR.
[2020-06-20] VITALS (18 sets, daily range): BP systolic 96–155; BP diastolic 38–85
--- NOTE | 2020-06-20 | NUR ---
RESTING IN BED ON RIGHT SIDE WITH NO DISTRESS NOTED; SLEEPING; SPO2 92%. WILL CONTINUE TO MONITOR.
--- NOTE | 2020-06-20 04:00 | NUR ---
RESTING IN BED WITH O2 INFUSING @11LITERS/MIN HF SPO2 WNL. WILL CONTINUE TO MONITOR.
--- NOTE | 2020-06-20 05:14 | NUR ---
AM LABS DRAWN VIA TLC AND FLUSHED PER PROTOCOL; SPO2 91% WILL CONTINUE TO MONITOR.
[2020-06-20 05:45] LABS: HEMATOCRIT 46.4 % (39.0-50.0); HEMOGLOBIN 15.3 g/dl (14.0-18.0); IMMATURE GRANULOCYTES 2.8 % (0.0-5.0); MEAN CELL VOLUME 101.8 fL CALC (80.0-100.0); MEAN CORPUSCULAR HGB 33.6 pG CALC (26.0-32.0); NEUT# 8.93 thou/uL (1.82-7.42); RED BLOOD COUNT 4.56 mill/uL (4.70-6.10); RED CELL DISTRI WIDTH 12.8 % (11.5-15.5)
[2020-06-20 06:08] LABS: ALBUMIN 3.1 g/dL (3.2-5.0); ALKALINE PHOSPHATASE 71 u/l (38-126); ANION GAP 9 (6-22 (CALC)); BUN 26 mg/dL (8-23); BUN/CREATININE RATIO 25 (12-20 (CALC)); C-REACTIVE PROTEIN 3.9 mg/dL (0-0.9); CARBON DIOXIDE 22 mmol/l (22-30); CHLORIDE 111 mmol/l (95-108); GFR > 60 ML/MIN (>=60 (CALC)); GFR FOR AFR.AMER. > 60 ML/MIN (>=60 (CALC)); POTASSIUM 3.7 mmol/l (3.5-5.1); SGOT/AST 33 u/l (19-48); SODIUM 139 mmol/l (137-146); TOTAL PROTEIN 5.9 g/dL (6.3-8.2)
[2020-06-20 06:14] LABS: BILIRUBIN, TOTAL 0.6 mg/dL (0.0-1.4)
--- NOTE | 2020-06-20 07:04 | NUR ---
RECEIVED REPORT FROM NURSE MTZ AT THIS TIME. PATIENT RESTING IN BED 02 ON AT 10 L RESPIRATIONS ARE UNLABORED AND ALL SAFETY MEASURES ARE IN PLACE.
--- NOTE | 2020-06-20 08:00 | NUR ---
PATIENT ASSESSES AT THIS TIME SEE INTERVENTION. PATIENT ALERT TO SELF AND REDIERECTABLE. 02 REMAINS ON AT 10L AT THIS TIME SPO2 IS 96%. PATIENT DENIES ANY PAIN AT THIS TIME CALL LIGHT WITHIN REACH.
--- NOTE | 2020-06-20 10:00 | NUR ---
PATIENT RESTING IN BED RESPIRATIONS EASY AND UNLABORED O2 ON 10L HI-FLOW. SPO2 IS 97% AT THIS TIME ROUNDING ON PATIENT. ALL SAFETY MEASURES ARE IN PLACE CALL LIGHT WITHIN REACH.
--- NOTE | 2020-06-20 11:55 | NUR ---
PATIENT RESTING IN WITH EYES OPEN RESPIRATIONS EASY AND UNLABORED. O2 REMAINS ON HI-FLOW AT 10L. CENTRAL LINE INTACT AND ALL LUMENS FLUSH WITHOUT RESISTANCE AT THIS TIME AND BLOOD RETURN WITHOUT RESISTANCE RETUNRN IN LUMEN. ALL SAFETY MEASURES ARE IN PLACE SIDERAILS UP X2
--- NOTE | 2020-06-20 14:05 | NUR ---
PATIENT IN BED AT THIS TIME LAYING ON LEFT SIDE. PATIENT INCONTIENT OF MODERATE AMOUNT OF URINE AT THIS TIME. PATIENT NICKOLAS CARE GIVEN AND CHANGED. PATIENT REMAINS ON HI-FLOW O2 AT 10L AND SPO2 IS 92% AT THIS TIME. ALL SAFETY MEASURES ARE IN PLACE CALL LIGHT WITHIN REACH.
--- NOTE | 2020-06-20 18:00 | NUR ---
PATIENT LAYING IN BED AT THIS TIME FEEDING SELF DINNER. PATIENT COUGHING AT THIS TIME A NON PRODUCTIVE COUGH. PATIENT MEDICATED FOR COUGH PER DR. ORDERED MEDICATION. HI-FLOW O2 REMAINS ON AT 10L. PATIENT DENIES ANY PAIN AT THIS TIME. ALL SAFETY MEASURES ARE IN PLACE CALL LIGHT WITHIN REACH. PATIENT STABLE AT THIS TIME FOR ON COMING SHIFT.
--- NOTE | 2020-06-20 20:41 | NUR ---
PT. ANXIOUS AND MEDICATED WITH ORDERED PRN ATIVAN; WILL REASSESS. ASSISTED PT. ONTO BEDPAN FOR BM. SPO2 97% WITH PT. ON 10LITERS/MIN HF NC. ASSESSMENT COMPLETED. RIGHT GROIN TLC INTACT AND FLUSHES WELL WITH BLOOD RETURN. RECORD RETRIEVAL SPECIALIST IN PLACE. CALL LIGHT IS IN REACH. WILL CONTINUE TO MONITOR.
--- NOTE | 2020-06-20 23:00 | NUR ---
INHALOR PROVIDED. NO DISTRESS NOTED. PO FLUIDS OFFERED. CALL LIGHT IS IN REACH.
[2020-06-21] VITALS (13 sets, daily range): BP systolic 105–142; BP diastolic 55–77
--- NOTE | 2020-06-21 01:00 | NUR ---
RESTING IN BED WITH ETES CLOSED;RESP. EVEN AND UNLABORED. CALL LIGHT IS IN REACH; WILL CONTINUE TO MONITOR. SPO2 WNL.
--- NOTE | 2020-06-21 03:00 | NUR ---
O2 TITRATED DOWN TO 8LITERS/MIN PER NC HF; SPO2 92%; WILL CONTINUE TO MONITOR. CALL LIGHT IS IN REACH. WILL CONTINUE TO MONITOR.
--- NOTE | 2020-06-21 05:16 | NUR ---
SPO2 91%-92%. PT. WITH MOIST COUGH AND MEDICATED WITH ORDERED PRN ROBITUSSIN AND INHALOR. ENCOURAGED TO CALL FOR ANY NEEDS. PO FLUIDS OFFERED. CALL LIGHT IS IN REACH. WILL CONTINUE TO MONITOR.
--- NOTE | 2020-06-21 05:30 | NUR ---
PT. INCONTINENT OF LARGE AMOUNT OF URINE , NICKOLAS CARE GIVEN, AND NEW LINENS APPLIED WELL GOWN AND BRIEF. RE-APPLIED O2 PT. REMOVED IT AND PT. DID DESAT WITHOUT O2 ON AND DECREASED TO 85% ON RA AND BACK UP TO 92% ON O2 @8LITERS/MIN HF NC.
--- NOTE | 2020-06-21 07:00 | NUR ---
PT REPORT RECEIVED FROM MEDICAL DIAGNOSTIC RADIOGRAPHER. PT LAYING ON RIGHT SIDE, RESTING QUIETLY ON BED, STILL CONFUSED AND TRYING TO PULL OFF CARDIAC LEADS.
--- NOTE | 2020-06-21 09:36 | NUR ---
DR. CROSS WANTS TO TRY AND WEAN PT DOWN TO 4 ON OXYGEN SATS LONG HE STAYS ABOVE 90%
--- NOTE | 2020-06-21 10:21 | NUR ---
PT RESTING QUIETLY, STATES IS NOT HUNGRY AND REFUSED BREAKFAST.
--- NOTE | 2020-06-21 11:01 | NUR ---
PTS SHAYLAECE CALLED BHUPENDRA AND ASKED TO SPEAK WITH PT. PORTABLE PHONE TAKEN IN AND HELD UP PT CONVERSED WITH CHANDRAKANT AND TOLD HER HE WAS FEELING BETTER. PTS VITAL SIGNS STABLE AT THIS TIME
--- NOTE | 2020-06-21 12:27 | NUR ---
REPORT GIVEN TO SANDY COLVIN [facility]
--- NOTE | 2020-06-21 12:43 | NUR ---
PT EATING LUNCH MEAL, SITTING UP IN BED. APPEARS TO BE A LITTLE MORE ALERT, AFTER TALKING WITH FAMILY.
--- NOTE | 2020-06-21 12:53 | NUR ---
PTS SATS DROPPING TO HIGH 80'S, PLACED BACK UP TO 6 L PER NC, AND SATS WENT UP TO 93%
--- NOTE | 2020-06-21 15:40 | NUR ---
PTS SATS IN LOW 80'S, TRYING TO GET UP OUT OF BED ON OWN. PLACED PT BACK ONTO BED, PLACED NC BACK IN NARES, PT CONTINUES TO PULL OFF THE NC, THEN SATS DROP DOWN AND PT BEGINS COUGHING.
--- NOTE | 2020-06-21 16:59 | NUR ---
PT LAYING IN BED ON BACK, WARM BLANKETS GIVEN PER REQUEST. SATS REMAIN 90% LONG PT KEEPS NC IN NARES.
--- NOTE | 2020-06-21 18:09 | NUR ---
PT RESTING QUIETLY ON BED, LIGHTS OUT, DENIES ANY COMPLAINTS AT THIS TIME. VITAL SIGNS STABLE
--- NOTE | 2020-06-21 18:25 | NUR ---
PTS SATS DOWN TO 83, WENT INTO ROOM PT HAD REMOVED NC, TAKEN OFF CARDIAC MONITER LEADS, AND TAKEN OFF GOWN AND BRIEFS. PLACED PT BACK ON BED.
--- NOTE | 2020-06-21 19:30 | NUR ---
ASSESSMENT COMPLETED. PT. ALERT TO SELF ONLY. SPO2 92% AND O2 @5LITERS/MIN HF NC. DENIES NEEEDS/PAIN. NO DISTRESS NOTED. SAFETY PRECAUTIONS IN PLACE AND BED ALARM ON. ENCOURAGED TO CALL FOR ANY NEEDS. CALL LIGHT IS IN REACH. WILL CONTINUE TO MONITOR.
--- NOTE | 2020-06-21 22:01 | NUR ---
SPO2 DOWN TO 88% AND TITRATED BACK UP TO 7LITERS/MIN PER HF NC AND SPO2 BACK UP TO 93%. INHALOR GIVEN. CALL LIGHT IS IN REACH.
--- NOTE | 2020-06-22 00:01 | NUR ---
CLEANED OF AN INCONTINENCE OF URINE; NICKOLAS CARE GIVEN AND NEW BRIEF APPLIED PT. NON-COOPERATIVE WITH STAFF. O2 REMAINS AT 7LITERS/MIN [facility].
[2020-06-22 04:00] VITALS: BP 126/65
--- NOTE | 2020-06-22 05:20 | NUR ---
PT. SLEEPING AND AWAKENED FOR AM LABS AND MEDS; RIGHT GROIN TLC INTACT AND FLUSHES WELL, NO BLOOD RETURN FOR AM LABS THIS TIME, AND SENIOR COMMUNICATIONS ENGINEER AT BEDSIDE AND OBTAINED LABS. PT. CLEANED OF A MODERATE INCONTINENCE OF URINE; NICKOLAS CARE GIVEN, AND NEW PAD AND BRIEF APPLIED. SPO2 94% ON HF NC @7LITERS/MIN. FRESH WATER PROVIDED. CALL LIGHT IS IN REACH.
[2020-06-22 05:45] LABS: HEMATOCRIT 47.3 % (39.0-50.0); HEMOGLOBIN 15.8 g/dl (14.0-18.0); MEAN CELL VOLUME 100.6 fL CALC (80.0-100.0); MEAN CORPUSCULAR HGB 33.6 pG CALC (26.0-32.0); MEAN CORPUSCULAR HGB CONC 33.4 g/dL CAL (32.0-36.0); NEUT# 7.87 thou/uL (1.82-7.42); RED BLOOD COUNT 4.7 mill/uL (4.70-6.10); RED CELL DISTRI WIDTH 12.8 % (11.5-15.5)
[2020-06-22 06:09] LABS: ALBUMIN 2.7 g/dL (3.2-5.0); ALKALINE PHOSPHATASE 82 u/l (38-126); ANION GAP 10 (6-22 (CALC)); BUN 21 mg/dL (8-23); BUN/CREATININE RATIO 27 (12-20 (CALC)); CARBON DIOXIDE 22 mmol/l (22-30); CHLORIDE 110 mmol/l (95-108); CREATININE 0.8 mg/dL (0.7-1.3); GFR > 60 ML/MIN (>=60 (CALC)); GFR FOR AFR.AMER. > 60 ML/MIN (>=60 (CALC)); POTASSIUM 4.3 mmol/l (3.5-5.1); SGOT/AST 33 u/l (19-48); SODIUM 138 mmol/l (137-146); TOTAL PROTEIN 5.4 g/dL (6.3-8.2)
[2020-06-22 06:28] LABS: BILIRUBIN, TOTAL 1.1 mg/dL (0.0-1.4); C-REACTIVE PROTEIN 16.3 mg/dL (0-0.9)
[2020-06-22 08:30] VITALS: BP 120/51
--- NOTE | 2020-06-22 10:23 | NUR ---
PT LAYING ON BED, REFUSED TO EAT BREAKFAST THIS AM, REFUSING TO KEEP NC ON, SATS WILL DROP DOWN TO MID 80'S WHEN PT HAS NC OFF AND IN THE 90'S WITH IT ON ON 8 LITRE. DECREASING O2 TO 6 AT THIS TIME TO SEE WHERE O2 STAYS
[2020-06-22 12:30] VITALS: BP 120/51
--- NOTE | 2020-06-22 14:30 | NUR ---
PT SLEEPING AT THIS TIME, VITAL SIGNS STABLE, O2 REMAINS OFF AND SATS ARE 90%
--- NOTE | 2020-06-22 16:49 | NUR ---
PT RESTING QUIETLY ON BED, CHANGED BRIEFS, PT TAKES OFF NC SOON IT IS PUT BACK ON HIM.
[2020-06-22 17:12] VITALS: BP 135/60
--- NOTE | 2020-06-22 19:45 | NUR ---
RESTIGN IN BED. PATIENT REMOVED O2, SAT 89% O2 REPLACED AT 5 L HF NC AND O2 SAT PICKED UP TO 97% DYSPNEIC WITH EXERTION. BREATH SOUNDS CLEAR IN UPPER LOBES, DIMINISHED IN BILATERAL BASES. RIGHT FEMORAL TLC IN PLACE, DSG CDI. LIQUOR BLENDER SHOWS SR. PATIENT INCONTINENT OF URINE, NICKOLAS-CARE PROVIDED AND BRIEF CHANGED. EXPLAINED PLAN OF CARE. CALL MANE IN REACH.
[2020-06-22 20:00] VITALS: BP 99/66
--- NOTE | 2020-06-22 22:00 | NUR ---
RESTING QUIETLY IN BED. RESP NON-LABORED AT REST. SR ON MONITOR NOTED TO HAVE SHORT RUNS OF INVERTED P WAVES.
[2020-06-23] VITALS (7 sets, daily range): BP systolic 88–131; BP diastolic 49–74
--- NOTE | 2020-06-23 00:15 | NUR ---
RESTING WITH EYES CLOSED. RESP NON-LABORED AT REST. O2 SAT 90% ON 5 L O2 HFNC.
--- NOTE | 2020-06-23 02:09 | NUR ---
INCONTINENT AGAIN OF URINE. VSS. MONITOR SR AT TIMES HAS INVERTED T WAVES.
--- NOTE | 2020-06-23 04:00 | NUR ---
RESTING WITH EYES CLSOED. RSP NON-LABORED.
--- NOTE | 2020-06-23 06:00 | NUR ---
PATIENT HAS SLEPT WELL TONIGHT. CALM AND COOPERATIVE. VSS.
--- NOTE | 2020-06-23 09:00 | NUR ---
PT IS AWAKE, ALERT, INTERACTIVE, CONFUSED. LUNGS CLEAR BUT DIMINISHED THROUGHOUT. PT USES NC AT 5 LPM, BUT REMOVES IT WITHOUT THINKING AND APOLOGIZES WHEN IT IS REPLACED. NO SHORTNESS OF BREATH, NO ATTEMPTS TO GET OOB THIS MORNING.
--- NOTE | 2020-06-23 16:38 | NUR ---
PT HAS REMAINED IN THE BED THE ENTIRE SHIFT THUS FAR, NO COMPLAINTS OR DISTRESS NOTED.
--- NOTE | 2020-06-23 19:45 | NUR ---
awake. nad. o2 cont per nc. paving crew foreman shows sinus rhythm pvcs hr 72. rt groin tlc in place & saline locked. po fluids encouraged & taken fair. voids incont. pericare given. diaper changed. fall & air/contact precautions & bed alarm cont.
--- NOTE | 2020-06-24 00:01 | NUR ---
eyes closed. nad. classroom monitor shows sinus rhythm hr 62.
--- NOTE | 2020-06-24 04:00 | NUR ---
eyes closed. nad. telemetry monitor shows sinus rhythm hr 68.
[2020-06-24 04:50] VITALS: BP 129/56
--- NOTE | 2020-06-24 05:30 | NUR ---
unable to draw from rt groin site.
[2020-06-24 08:00] VITALS: BP 111/56
--- NOTE | 2020-06-24 09:00 | NUR ---
PT SEEN AT REST IN THE BED, NOT A MORNING PERSON. PT WITH CLEAR YET DIMINISHED LUNGS, 5 LPM NC. PT INCONTINENT OF URINE, RESISTS CHANGE. RIGHT FEMORAL TLC, UNABLE TO DRAW FROM EITHER PORT. PT APPEARS MORE AWAKE TODAY, IS ABLE TO EXPRESS HIMSELF MORE CLEARLY.
[2020-06-24 11:00] VITALS: BP 117/61
--- NOTE | 2020-06-24 13:19 | NUR ---
PT CONTINUES AT REST IN THE BED, NO CHANGE IN STATUS. PT CONTINUES TO REFUSE MOST MEALS, EATING MINIMALLY ONLY WHEN FED.
[2020-06-24 16:00] VITALS: BP 134/71
[2020-06-24 19:50] VITALS: BP 125/66
--- NOTE | 2020-06-24 19:56 | NUR ---
ASSESSMENT COMPLETED. PT. IS ALERT TO SELF ONLY. RIGHT GROIN TLC INTACT AND SL, FLUSHES WELL, NO BLOOD RETURN; DRESSING CHANGED TO CENTRAL LINE. PT. IS DRY AT THIS TIME, NO INCONTINENCE NOTED. TEMP OF 99.9 AND MEDICATED WITH ORDERED TYLENOL, WILL REASSESS. REPOSITIONED IN BED AND BED ALARM SET FOR SAFETY PRECAUTIONS. CALL LIGHT IS IN REACH.
--- NOTE | 2020-06-24 23:00 | NUR ---
ATTEMPTED TO GET LABS ORDERED FROM AM, PT. BECAME AGGTITATED AND REFUSED TO ALLOW STAFF TO GET LABS OR CHANGE HIS BRIEF, WILL ATTEMPT AGAIN AT A LATER TIME. ALSO DELINED INHALOR. CALL LIGHT IS IN REACH. BED ALARM ON.
[2020-06-25] VITALS (9 sets, daily range): BP systolic 91–131; BP diastolic 57–77
--- NOTE | 2020-06-25 04:30 | NUR ---
PT. CLEANED OF A LARGE INCONTINENCE OF URINE; NICKOLAS CARE PROVIDED; PT. IS NOT COOPERATIVE WITH STAFF AND VERBALLY ABUSIVE TOWARDS STAFF.PT. IS RE-EDUCATED AND RE-ORIENTED ON NEED FOR ASSISTANCE WITH CARE AND WHERE HE IS. BED ALARM ON. O2 ON 4LITERS.MIN HF AND SPO2 97%.
--- NOTE | 2020-06-25 07:00 | NUR ---
REPORT RECEIVED FROM EDGE BRUSHER, PT IS SLEEPING AT THIS TIME, PT REMAINS ON 02 AT 4 L PER N/C. VITAL SIGNS STABLE
--- NOTE | 2020-06-25 10:00 | NUR ---
PT REMAINS SLEEPING, REFUSED BREAKFAST, STATES DOESNT WANT TO BE BOTHERED, WHEN I TRIED TO GET HIM TO EAT EVEN A LITTLE, HE SAID LOUDER,"I TOLD YOU i DONT WANT TO BE BOTHERED, NOW LEAVE"
--- NOTE | 2020-06-25 12:34 | NUR ---
PT REFUSED TO EAT LUNCH, REFUSED TO SIT UP IN BED AND GET BED BATH.
--- NOTE | 2020-06-25 13:51 | NUR ---
PT REMAINS CALM, WARM BLANKET GIVEN PER REQUEST. STILL DOES NOT WANT TO EAT.
--- NOTE | 2020-06-25 15:16 | NUR ---
PT REMAINS IN BED, SR HEART RATE IN THE 70'S, SATS 93-95 WHEN PT KEEPS OXYGEN NC ON. REFUSING TO ALLOW ME TO CHANGE BRIEFS, STATES JUST LEAVE ME THE HELL ALONE. SWATTING AT YOUR HANDS TO KEEP YOU FROM TURNING HIM.
--- NOTE | 2020-06-25 15:49 | NUR ---
SPOKE WITH DENNISE TIAN WHO IS THE POA FOR PT . THEY LIVE IN [facility], AND HE STATES THAT HE WOULD LIKE TO SPEAK TO THE WHO IS TAKING CARE OF PT. ABOUT PLAN OF CARE. ANJELICA STATES HE HAS BEEN AT [facility] FOR OVER A YEAR AND HALF AND IS ON O2 THERE, WITH A PORTABLE TANK. HE BELIEVE THAT HE COULD PROBABLY GO BACK TO [place] INSTEAD OF GOING INTO [place]. ADVISED ANJELICA THAT I WOULD CONTACT CASE MANAGEMENT AND THEY COULD SPEAK TO HIM ABOUT POSSIBILITIES.
--- NOTE | 2020-06-25 16:37 | NUR ---
CHANGED PT BRIEF AND GAVE HIM PARTIAL BATH, AND PT APPEARS TO BE MORE AWAKE, REACHING FOR ICED TEA AND ASKING FOR SOMETHING TO EAT. GAVE HIM SOME PUDDING, TO TIDE HIM OVER UNTIL DINNER TRAY. PT APPEARS TO BE MORE LIKE HIS USUAL SELF, SMILING AND THANKING STAFF WHEN EVER THEY HELP HIM.
--- NOTE | 2020-06-25 17:36 | NUR ---
PT. SITTING UP EATING DINNER TRAY WITH GOOD APETITE FOR HIM. SMILING AND APPEARS TO BE INCREASED AWARENESS AND AWAKE
--- NOTE | 2020-06-25 20:07 | NUR ---
RECEIVED REPORT FROM NURSE KIRK, PATIENT CURRENTLY RESTING IN BED, RESTING ON AIR MATRESS, ALERT ONLY TO SELF, LUNG SOUNDS DIMINISHED, HYPOACTIVE BOWEL SOUNDS, VITALS TAKEN AND RECORDED, HAS A TRIPLE LUMEN IJ ON T GROIN, ALL LUMEN FLUSHES WELL NO RESISTANCE BUT UNABLE TO DRAW BLOOD FROM ALL LUMEN, PATIENT CURRENTLY DRY, POX AT 88% MAINTAINING ON 3LPM, BUMPED O2 TO 5LPM WITH SAT 91-92 %, NO DISCOMFORTS NOTED, STATED WANTED TO SLEEP, CALLL LIGHT AT REACH.
--- NOTE | 2020-06-25 23:06 | NUR ---
PATIENT APPEARS TO BE SLEEPING EASY TO AROUSE, DUE INHALER GIVEN, PATIENT WAS INCONTINENT OF URINE, PERICARE GIVEN, REFUSED TO HAVE BED BATH AT THIS TIME, STATED "ITS TOO COLD, I HATE TO BE COLD" WARM BLANKETS PROVIDED PATIENT WENT BACK TO SLEEP AFTER.WILL CONTINUE TO MONITOR.
--- NOTE | 2020-06-26 01:23 | NUR ---
PATIENT GETTING AGITATED, DECORATIVE CUTTING MACHINE TENDER CURRENTLY FIXING PILATES COORDINATOR, REMAINS ON TOSSING AND TURNING, PATIENT STATES TO LEAVE HIM ALONE AND THAT HE IS COLD, BLANKETS GIVEN, WILL CONTINUE TO MINITOR.
--- NOTE | 2020-06-26 04:30 | NUR ---
PATIENT RESTING IN BED BREATHING UNLABORED, PATIENT DRY AT THIS TIME, NO DISCOMFORTS NOTED, REMAINS ON AIR/ CONTACT PRECAUTIONS CALL LIGHT AT REACH.
[2020-06-26 05:12] VITALS: BP 103/60
--- NOTE | 2020-06-26 06:07 | NUR ---
PATIENT CHECKED FOR INCONTINENCE, PATIENT IS DRY AT THIS TIME, WARM BLANKETS PROVIDED,
--- NOTE | 2020-06-26 06:55 | NUR ---
report rec'd care assumed
[2020-06-26 07:35] VITALS: BP 112/75
--- NOTE | 2020-06-26 07:35 | NUR ---
pt resting with eyes closed, arouses to verbal stimuli, refuses am meal does take medication with OJ, o2 cont per nc pt requires frequent reminders to keep o2 on. tele monitor reading sinus rhythm pvcs hr 64. rt groin tlc in place & saline locked. po fluids encouraged & taken fair. voids incont. brief dry at this time, offered am bathand pt refused, will re attepmt later in shift. fall & air/contact precautions & bed alarm cont.
--- NOTE | 2020-06-26 09:09 | NUR ---
pt resting, no coplaints offered, call williamson wipaolon reach,e asily visible from nurses station for safety bed alarm in use, call williamson within reach
--- NOTE | 2020-06-26 09:30 | NUR ---
Physical therapy at bedside for treat and eval pt refused and states "adios" to therapist.
--- NOTE | 2020-06-26 09:44 | NUR ---
PT STRONGLY REFUSED PT EVALUATION. REPORTED TO SN.
--- NOTE | 2020-06-26 10:32 | NUR ---
pt resting with eyes closed no complaints offered, O2 on at 2l via NC, will continue to monitor.
--- NOTE | 2020-06-26 11:30 | NUR ---
Pt restingin bed with eyes closed arouses easily to verbal stimuli, o2 at 2L since 1015 with sats maintained 902-94% pt requires frequent reminders to keep O2 and saturation probe on, copperative but forgetful, pt again refuses lunch, brief remains dry. will continue to monitor
[2020-06-26 12:00] VITALS: BP 100/73
--- NOTE | 2020-06-26 12:45 | NUR ---
Pt resting in bed, again offered, bath / ADL care pt refused, offered to heat afternoonmeal pt declines, comfort measures provided, continue on 2l with sats maintained.
--- NOTE | 2020-06-26 13:30 | NUR ---
Pt again refuses adl care or bath, will try again later, pt's brother called earlier, connected him with Case Mgmt for discharge plan discussion
--- NOTE | 2020-06-26 15:21 | NUR ---
pt uses inhaler as ordered, TLC flushed per order without incident, pt declines adl care and bath again, requested drink and water provided, pt refuses meal and any other care, call williamson within reach
--- NOTE | 2020-06-26 15:33 | NUR ---
pt refused to work with therapy again educated pt regarding d/c plan and pt repeats "I don't know what you want me to do I'm not ready for therapy this is all news to me, reminded pt that I have addressed it with him multiple times all day and pt states well I don't recall that. Pt very polite but non cooperative with therapy and adl care, will continue to monitor and try to get pt to cooperate.
[2020-06-26 16:04] VITALS: BP 136/61
--- NOTE | 2020-06-26 16:26 | NUR ---
FRESH WATER PROVIDED, AND VS OBTAINED, PT TOLERATED WELL, CONTINUES TO REQUIRE FREQUENT REMINDERS TO KEEP O2 IN NOSE SATS ON ROOM AIR 89-92, NO S/S OF DISTRESS NOTED, WILL CONTINUE TO MONITOR.
--- NOTE | 2020-06-26 17:25 | NUR ---
PT ENCOURAGED TO EAT PM MEAL BUT AGAIN REFUSES, OFFERED SET UP ASSIST, HELP WITH FEEDING ETC, PT STILL REFUSES. WILL CONTINUE TO MONITOR.
--- NOTE | 2020-06-26 18:06 | NUR ---
PT INCONTINENT OF URINE, REFUSES NICKOLAS CARE BUT DOES ALLOW BRIEF CHANGE, COMFROT MEASURES PROVIDED PT TOLERATES/ALLOWS, WILL CONTINUE TO MONITOR,
[2020-06-26 19:40] VITALS: BP 117/65
--- NOTE | 2020-06-26 19:40 | NUR ---
awakens easily. pleasant & coop. o2 off. instructed pt to replace it. pt complied. desk monitor shows sinus rhythm pvcs hr 75. rt groin tlc in place & flushes well. po fluids taken fair. diaper dry. fall & air/contact precautions cont.
[2020-06-27] VITALS (7 sets, daily range): BP systolic 107–118; BP diastolic 56–72
--- NOTE | 2020-06-27 00:01 | NUR ---
eyes closed. nad. telemetry monitor shows sinus rhythm pvcs hr 64.
--- NOTE | 2020-06-27 04:00 | NUR ---
hall monitor shows sinus rhythm hr 64.
--- NOTE | 2020-06-27 05:30 | NUR ---
awakens easily. incont of urine. am care given, diaper placed, then up to chair. juan carlos well.
--- NOTE | 2020-06-27 11:21 | NUR ---
06/16/20 Attempted eval again but patient refused
--- NOTE | 2020-06-27 12:00 | NUR ---
PATIENT EATING LUMCH NO DOMPLAINTS OR CONCERNS AT THIS TIME AWAITING PLACEMENT. PATIENT STILL FIDGETING WITH CORDS AABD PROBES, BED IN LOWEST POSTION AND CALL MANE IN REACH
--- NOTE | 2020-06-27 14:52 | NUR ---
2ND ATTEMPT TO DRAW BLOOD FROM PATIENT. PATIENT REFUSED. TRIPLE LUMEN NOT RETURNING BLOOD.
--- NOTE | 2020-06-27 16:41 | NUR ---
PATIENT REFUSED CLEANING SOILED BRIEFS UP. PATIENT ALSO TAKING OFF ALL MONITORS
--- NOTE | 2020-06-27 18:32 | NUR ---
PATIENT ASLEEP. BED IN LOWEST POSTION AND CALL MANE IN REACH
--- NOTE | 2020-06-27 19:40 | NUR ---
awakens easily. o2 off. instructed pt to replace & pt complied. nad. property assessment monitor shows sinus rhythm pac pvcs hr 70. rt groin tlc in place & saline locked. po fluids taken poor. incont of urine. pericare given & diaper changed. bed alarm, fall & air/contact precautions cont.
--- NOTE | 2020-06-27 22:30 | NUR ---
derrek lares called this blog writer. updated on pts condition.
--- NOTE | 2020-06-28 00:01 | NUR ---
monitoring and evaluation advisor shows sinus rhythm hr 62.
[2020-06-28 04:00] VITALS: BP 128/55
--- NOTE | 2020-06-28 04:00 | NUR ---
laboratory monitor shows sinus rhythm hr 64.
--- NOTE | 2020-06-28 05:10 | NUR ---
lab here. blood drawn.
[2020-06-28 05:33] LABS: HEMATOCRIT 42.6 % (39.0-50.0); HEMOGLOBIN 14.4 g/dl (14.0-18.0); MEAN CELL VOLUME 100.7 fL CALC (80.0-100.0); MEAN CORPUSCULAR HGB CONC 33.8 g/dL CAL (32.0-36.0); RED BLOOD COUNT 4.23 mill/uL (4.70-6.10); RED CELL DISTRI WIDTH 13.3 % (11.5-15.5)
[2020-06-28 05:49] LABS: ALKALINE PHOSPHATASE 107 u/l (38-126); ANION GAP 9 (6-22 (CALC)); BILIRUBIN, TOTAL 0.9 mg/dL (0.0-1.4); BUN 14 mg/dL (8-23); BUN/CREATININE RATIO 14 (12-20 (CALC)); CARBON DIOXIDE 22 mmol/l (22-30); CHLORIDE 109 mmol/l (95-108); GFR > 60 ML/MIN (>=60 (CALC)); GFR FOR AFR.AMER. > 60 ML/MIN (>=60 (CALC)); POTASSIUM 4.3 mmol/l (3.5-5.1); SGOT/AST 41 u/l (19-48); SODIUM 136 mmol/l (137-146); TOTAL PROTEIN 5.9 g/dL (6.3-8.2)
--- NOTE | 2020-06-28 06:15 | NUR ---
inc of urine. jalen care given. diaper changed.
--- NOTE | 2020-06-28 07:13 | NUR ---
PT REPORT RECEIVED, PT RESTING QUIETLY ON STRETCHER.
[2020-06-28 08:00] VITALS: BP 119/53
--- NOTE | 2020-06-28 08:37 | NUR ---
SPOKE WITH REBECCA FROM [facility], SHE STATES WITH PT HAVING COPD, HE HAD OXYGEN IN HIS ROOM ALL THE TIME, BUT VERY SELDOM USED IT. STATES BEFORE COMING IN TO HOSPITAL HIS DIAGNOSIS WAS FAILURE TO THRIVE, ALL HE WANTED TO DO WAS STAY IN HIS ROOM, WATCHING TV, ATE VERY LITTLE. SHE WANTS TO COME VISIT HIM, ADVISED THAT I WILL CHECK WITH MY MANAGER CONVENTION AND RETURN A CALL BACK TO HER TO LET HER KNOW IF THAT IS ALLOWED.
--- NOTE | 2020-06-28 09:12 | NUR ---
ADMINISTRATION STATES THEY JUST SENT OFF SWAB YESTERDAY TO [facility] FOR PATRICIAID, AND WOULD PREFER HER TO WAIT UNTIL TEST COMES BACK BEFORE REBECCA COULD COME VISIT.
--- NOTE | 2020-06-28 09:18 | NUR ---
PT SITTING UP IN CHAIR, ATE 50% OF BREAKFAST. WATCHING TV, APPEARS TO BE POLITE AT THIS TIME. WILL NOT KEEP ON OXYGEN, SATS DROP TO LOW 70'S, BUT WHEN PT PUTS OXYGEN BACK ON WILL GO UP TO LOW OP'S.
--- NOTE | 2020-06-28 11:52 | NUR ---
MONTY FROM CASE MANAGENT STATES TALKED TO ANJELICA FOR PT AND THEY THINK HE CAN GO BACK TO [facility], MONTY STATES SHE WILL CALL REBECCA AT [facility] AND EXPLAIN THAT THE DRZaheer AND HER FEEL THAT THE PT WOULD BENEFIT FROM BEING AT THE REHAB FOR AWHILE. SHE WILL GET BACK WITH THIS SALESPERSON HEARING AIDS WHEN A DECISION HAS BEEN MADE. EBONY HOGAN NOTIFIED.
--- NOTE | 2020-06-28 13:49 | NUR ---
PT UNSTEADY ON LEGS THIS WATERSHED ENGINEER PLACED PT BACK INTO BED. WARM BLANKETS GIVEN PER PT REQUEST. PT SLEEPING AT THIS TIME. AWAITING PHONE CALL FROM CASE MANAGEMENT TO START PROCEEDINGS TO TRANSFER PT TO [facility] PER CASE MANAGEMENT.
--- NOTE | 2020-06-28 15:04 | NUR ---
CASE MANAGEMENT RETURNED CALL AND STATES THAT POA HAS AGREED TO PT BEING PLACED IN REHAB AT THIS TIME. POA CALLED AND WANTED TO SPEAK TO PT, PORTABLE PHONE TAKEN IN AND PT TALKING AT THIS TIME.
[2020-06-28] MEDS ORDERED: OXY1 (15:21)
--- NOTE | 2020-06-28 16:43 | NUR ---
SPOKE WITH MELISSA AT [facility] FOR REPORT. CALLED AND SPOKE WITH [facility], IT WILL BE ABOUT AN HOUR BEFORE THEY CAN COME AND BARREL LAPPER PT.
--- NOTE | 2020-06-28 18:04 | NUR ---
[facility] HERE FOR TRANSFER TO [facility], PT WATCH AND INHALER SENT WITH PT, CALLED [facility] AND GAVE AN UPDATE TIME OF ARRIAL
--- NOTE | 2020-06-28 18:44 | NUR ---
[facility] AT TO PLACE A RETURN ON AIR MATTRESS. SPOKE TO [facility] AND WAS GIVEN CONFIRMATION NUMBER [phone].
== END 2020-06-28 18:00 | DRG 177 ==
LOC: ED 09:12 → ED-I 13:23 → ED 13:41 → MS2 13:42 → ICU 06-13 12:49
PROVIDERS: Family Medicine; Nurse Practitioner; Nurse Practitioner Family; ADMIT Internal Medicine; ATTEND Internal Medicine
PROC: 06HY33Z Insertion of Infusion Device into Lower Vein, Percutaneous Approach (ICD-10-PCS; principal; 2020-06-09)
PROC: XW043E5 Introduction of Remdesivir Anti-infective into Central Vein, Percutaneous Approach, New Technology Group 5 (ICD-10-PCS; 2020-06-12)
DX: U07.1 COVID-19 (principal); J12.89 Other viral pneumonia; J96.01 Acute respiratory failure with hypoxia; G93.49 Other encephalopathy; E86.0 Dehydration; R45.1 Restlessness and agitation; J43.9 Emphysema, unspecified; E03.9 Hypothyroidism, unspecified; K21.9 Gastro-esophageal reflux disease without esophagitis; F32.9 Major depressive disorder, single episode, unspecified; J30.2 Other seasonal allergic rhinitis; Z78.1 Physical restraint status; Z99.81 Dependence on supplemental oxygen; Z79.899 Other long term (current) drug therapy
CPT/HCPCS: G0378; J1650; J2060; Q9967; S0166

== ENCOUNTER 2021-07-20 07:31 | Inpatient (IN) | payer MEDICARE, BC ==
[2021-07-20] VITALS (10 sets, daily range): BP systolic 98–163; BP diastolic 56–94
[~2021-07-20] VITALS: Ht 170.2 cm; Wt 70.0 kg
[~2021-07-20 07:31] MED LIST changes: +B1 HIGH POTENC100 MG PO; +CETIRIZINE10 MG PO; +OXY1; +THERA M PLUS PO
--- NOTE | 2021-07-20 07:47 | NUR ---
PATIENT TO ROOM VIA EMS AND PHYSICIAN AT BEDSIDE FOR EVAL
--- NOTE | 2021-07-20 08:20 | NUR ---
RT AT BEDSIDE, BIPAP INITIATED
--- NOTE | 2021-07-20 08:29 | NUR ---
PT PRESENTED TPO ED VIA EMS ON NRB WITH INCREASED WOB. COPD EXCERBATION TREATED WITH DUONEB X 1 AND 5MG ALBUTEROL NEBIULIZED. BIPAP INITIATED AND PT PLACED ON SUITABLE PARAMTERS. ADEOLA WELL AT THIS TIME. RESEARCH HYDRAULIC ENGINEER TO MONITOR.
[2021-07-20 08:34] LABS: IMMATURE GRANULOCYTES 0.2 % (0.0-5.0); MEAN CELL VOLUME 101.4 fL CALC (80.0-100.0); MEAN CORPUSCULAR HGB 34.2 pG CALC (26.0-32.0); MEAN CORPUSCULAR HGB CONC 33.7 g/dL CAL (32.0-36.0); NEUT# 6.71 thou/uL (1.82-7.42); RED BLOOD COUNT 4.97 mill/uL (4.70-6.10); RED CELL DISTRI WIDTH 12.5 % (11.5-15.5)
[2021-07-20 08:48] LABS: HEMATOCRIT 50.4 % (39.0-50.0)
[2021-07-20 08:49] LABS: ALKALINE PHOSPHATASE 108 u/l (38-126); ANION GAP 21 (6-22 (CALC)); BUN 17 mg/dL (8-23); BUN/CREATININE RATIO 15 (12-20 (CALC)); CARBON DIOXIDE 20 mmol/l (22-30); CHLORIDE 101 mmol/l (95-108); CREATININE 1.1 mg/dL (0.7-1.3); GFR > 60 ML/MIN (>=60 (CALC)); GFR FOR AFR.AMER. > 60 ML/MIN (>=60 (CALC)); SGOT/AST 50 u/l (19-48); SODIUM 139 mmol/l (137-146)
[2021-07-20 08:56] LABS: TOTAL PROTEIN 9.5 g/dL (6.3-8.2)
--- NOTE | 2021-07-20 09:30 | NUR ---
RESTING QUIETLY, TOLERATING BIPAP WITHOUT DIFFICULTY, DENIES NEEDS
--- NOTE | 2021-07-20 09:43 | NUR ---
DR WINSTON AT BEDSIDE TO DISCUSS POC
--- NOTE | 2021-07-20 09:47 | NUR ---
REPORT CALLED TO NICHOLAS DOBSON
--- NOTE | 2021-07-20 10:00 | NUR ---
TO ICU VIA STRETCHER, MONITOR ATTACHED, ACCOMPANIED BY RT.
--- NOTE | 2021-07-20 10:10 | NUR ---
PT ARRIVED TO FROM ER ON STRETCHER WITH BRONSON MOSS AT BEDSIDE.
--- NOTE | 2021-07-20 10:45 | NUR ---
MD AT BEDSIDE SEEING PT
--- NOTE | 2021-07-20 13:08 | NUR ---
PT PLACED BACK ON BIPAP AFTER EATING LUNCH. AT THIS TIME I OBSERVED A SMALL PAIR OF SCISSORS FALLING OUT OF PT POCKET. ATTEMPTED TO REMOVE AND PLACE WITH PTS BELONGINGS ON CHAIR. PT REFUSED TO ALLOW ME TO REMOVE SCISSORS FROM POCKETS. EXPLAINED IT WAS A SAFETY ISSUE TO KEEP THEM IN HIS POCKET. HE INSISTED ON KEEPING THEM.
--- NOTE | 2021-07-20 14:23 | NUR ---
UPDATED RN FROM LUISA POLANCO ON PT STATUS
--- NOTE | 2021-07-20 17:35 | NUR ---
PT SITTING AT BEDSIDE EATING DINNER. HAS REMAINED ON 02 NC AT 3L SINCE RT ADMISTERED DUONEB TREATMENT. NO S/S OF DISTRESS NOTED.
--- NOTE | 2021-07-20 19:30 | NUR ---
RESTING IN BED . PATIENT IS RESTLESS AND ANXIOUS. EMOTIONAL SUPPORT AND REASSURANCE PROVIDED. REPONDS TO VERBAL CUES. RESP LABORED. O2 ON AT 4 L NC. O2 SAT 91-94% BREATH SOUNDS DIMINISHED THROUGHOUT. FREQ MOIST COUGH. MEDICATED WITH ROBITUSS AC ORDERED FOR COUGH. IV IN RFA, SITE BENIGN. NS INFUSING AT 100 ML/HR TO RFA SITE. MEDICAL RECORD SPECIALIST SHOWS SR. DISCUSSED PLAN OF CARE. DENIES NEEDS AT THIS TIME. CALL MANE IN REACH. CALLED RT FOR NEB RX.
--- NOTE | 2021-07-20 19:50 | NUR ---
PATIENT C/O SOB. PLACED ON BIPAP BY RT.
--- NOTE | 2021-07-20 21:30 | NUR ---
PATIENT REPEATEDLY REMOVING BIPAP MASK, REQUEST TO BE PLACED BACK ON NC. BIPAP ON HOLD AND O2 REAPPLIED AT 4 L NC. WILL MONITOR CLOSELY.
--- NOTE | 2021-07-20 22:00 | NUR ---
RESTING QUIETLY AT THIS TIME. VSS.
--- NOTE | 2021-07-20 23:12 | NUR ---
PATIENT WENT INTO AFIB RVR, HR SUSTAINING IN THE 150'S. CALL TO RT FOR EKG TO CONFIRM RHYTHM CHANGE. CALL TO DR WINSTON TO REPORT RHYTHM CHANGE. NEW ORDERS RECEIVED.
--- NOTE | 2021-07-20 23:45 | NUR ---
ROBITUSSIN AC GIVEN FOR COUGH. XANAX 1 MG GIVEN FOR ANXIETY AND LOPRESSOR 5 MG IVP FOR AFIB RVR AND TYLENOL 650 MG PO FOR C/O HEADACHE. WILL CONTINUE TO MONITOR CLOSELY.
[2021-07-21] VITALS (10 sets, daily range): BP systolic 107–142; BP diastolic 56–67
--- NOTE | 2021-07-21 | NUR ---
PATIENT CONVERTED TO SR WITH FREQ PVC'S AND PAC'S.
--- NOTE | 2021-07-21 02:00 | NUR ---
RESTING CALMLY AND QUIETLY AT THIS TIME. SR WITH PAC'S AND PVC'S ON MONITOR.
--- NOTE | 2021-07-21 04:00 | NUR ---
RESTING WITH EYES CLOSED. VSS. NO CHANGES TO REPORT.
--- NOTE | 2021-07-21 04:30 | NUR ---
WELFARE INVESTIGATOR HERE TO DRAW BLOOD FOR AM LAB WORK.
[2021-07-21 05:16] LABS: ANION GAP 11 (6-22 (CALC)); BUN 28 mg/dL (8-23); BUN/CREATININE RATIO 21 (12-20 (CALC)); CARBON DIOXIDE 24 mmol/l (22-30); CHLORIDE 105 mmol/l (95-108); CREATININE 1.3 mg/dL (0.7-1.3); GFR 53 ML/MIN (>=60 (CALC)); GFR FOR AFR.AMER. > 60 ML/MIN (>=60 (CALC)); MAGNESIUM 2.7 mg/dL (1.6-2.3); POTASSIUM 4.2 mmol/l (3.5-5.1); SODIUM 135 mmol/l (137-146)
[2021-07-21 05:25] LABS: MEAN CELL VOLUME 104.5 fL CALC (80.0-100.0); MEAN CORPUSCULAR HGB 34.2 pG CALC (26.0-32.0); MEAN CORPUSCULAR HGB CONC 32.7 g/dL CAL (32.0-36.0); RED BLOOD COUNT 4.01 mill/uL (4.70-6.10); RED CELL DISTRI WIDTH 12.5 % (11.5-15.5)
[2021-07-21 05:29] LABS: HEMATOCRIT 41.9 % (39.0-50.0); HEMOGLOBIN 13.7 g/dl (14.0-18.0)
--- NOTE | 2021-07-21 06:09 | NUR ---
PATIENT A LITTLE CONFUSED ON AWAKENING. REMOVING O2, SHREDDED FILLER MACHINE WRAPPER LAYER AND PULSE OX. REORIENTS EASILY. MONITORING EQUIPMENT REAPPLIED.
--- NOTE | 2021-07-21 07:02 | NUR ---
ASSUMED CARE OF PT FROM BRONSON BONILLA. PT CONFUSED, SITTING ON SIDE OF BED WITH ALL MONTIORING EQUIPMENT, AND GOWN REMOVED. REORIENTED PT, REPLACED ALL EQUIPMENT AND ASSESSED PT WHILE REPOSITIONING HIM INTO BED. PT DENIES ANY FURTHER NEEDS AT THIS TIME.NO S/S OF DISTRESS NOTED. PT NOTED TO BE 89% ON ROOM AIR PRIOR TO PLACING NC BACK INTO POSITION. REMINDED PT TO CALL FOR ASSISTANCE, AND BED ALARM ACTIVATED.
--- NOTE | 2021-07-21 07:50 | NUR ---
PROVIDED PT WITH BREAKFAST TRAY
--- NOTE | 2021-07-21 09:05 | NUR ---
ROUNDING AT BEDSIDE
--- NOTE | 2021-07-21 12:51 | NUR ---
PT HAS BEEN RESTING IN BED SINCE THIS AM, DENIES NEEDS, REMAINS ORIENTED AT THIS TIME. NO S/S OF DISTRESS NOTED
--- NOTE | 2021-07-21 15:54 | NUR ---
REPORT GIVEN TO BRONSON OSORIO VIA PHONE FOR PT TRANSFER TO [facility].. ALL QUESTIONS AND CONCERNS ADDRESSED. POC COMMUNICATED.
--- NOTE | 2021-07-21 16:29 | NUR ---
RECEIVED REPORT FROM ICU NURSE RICHELLE PATIENT RECEIVED ON UNIT. PATIENT GIVEN ROOM ORINETATION AND VITAL SIGNS TAKE SEE INTERVENTIONS TELE MONITOR IN PLACE CALL LIGHT IS NEAR. PATIENT DENIES ANY PAIN.
--- NOTE | 2021-07-21 16:31 | NUR ---
PT TRANSFERED TO 281 VIA WHEELCHAIR, WITH PERSONAL BELONGINGS AT BEDSIDE, NO S/S OF DISTRESS NOTED. TELE MONITOR IN PLACE PRIOR TO TRANSFER, WINTER, PCT AT BEDSIDE
--- NOTE | 2021-07-21 19:45 | NUR ---
PATIENT ALERT AND ORIENTED. ABLE TO MAKE NEEDS KNOWN. PLEASANT AND COOPERATIVE. APPEARS TO GRUNT AT TIMES. ASSESSMENT COMPLETE. NO DISTRESS NOTED. DENIES ANY PAIN. #20 IV SITE TO RT. FOREARM FLUSHED AND PATENT. CALL LIGHT AND BELONGINGS IN REACH. REMINDED PATIENT TO USE CALL LIGHT TO ASK FOR HELP.
[2021-07-22] VITALS: BP 139/62
--- NOTE | 2021-07-22 00:30 | NUR ---
RESTING IN BED LAYING ON HIS BACK. NO COMPLAINTS OF PAIN OR DISTRESS. REMAINS GRUNTING AT TIMES. VERY PLEASANT. COOPERATIVE. CALL LIGHT AND BELONGINGS REMAIN IN REACH.
[2021-07-22 04:00] VITALS: BP 119/73
--- NOTE | 2021-07-22 04:45 | NUR ---
PATIENT RESTING IN BED QUIETLY. NO SIGNS OF DISTRESS. NO COMPLAINTS OF PAIN VOICED. VS STABLE. REMINDED TO CALL FOR ASSISTANCE WITH AMBULATION FOR SAFETY. CALL LIGHT AND BELONGINGS WITHIN REACH.
[2021-07-22 04:53] LABS: HEMATOCRIT 43.7 % (39.0-50.0); HEMOGLOBIN 14.5 g/dl (14.0-18.0); MEAN CELL VOLUME 104.3 fL CALC (80.0-100.0); MEAN CORPUSCULAR HGB 34.6 pG CALC (26.0-32.0); MEAN CORPUSCULAR HGB CONC 33.2 g/dL CAL (32.0-36.0); RED BLOOD COUNT 4.19 mill/uL (4.70-6.10); RED CELL DISTRI WIDTH 12.8 % (11.5-15.5)
[2021-07-22 05:09] LABS: ANION GAP 11 (6-22 (CALC)); BUN 33 mg/dL (8-23); BUN/CREATININE RATIO 30 (12-20 (CALC)); CARBON DIOXIDE 25 mmol/l (22-30); CHLORIDE 108 mmol/l (95-108); CREATININE 1.1 mg/dL (0.7-1.3); GFR > 60 ML/MIN (>=60 (CALC)); GFR FOR AFR.AMER. > 60 ML/MIN (>=60 (CALC)); POTASSIUM 4.5 mmol/l (3.5-5.1); SODIUM 140 mmol/l (137-146)
--- NOTE | 2021-07-22 07:00 | NUR ---
SHIFT CHANGE REPORT, PT AWAKE ALERT AND ORIENTED RESTING IN BED, DENIES PAIN, BREATHING SLIGHTLY LABORED ON O2 @ 4L VIA NC, TELE MONITOR IN PLACE. INTERACTIVE DESIGNER REPORTING NO READING OR ARTIFACTS ON MONITOR, BOX CHANGED BUT NO CHANGE IN EADINGS, PT CHANGED TO ROOM 290, READINGS STILL NOT ADEQUATE, PT REPOSITIONED IN HIGH FOWLERS POSITION AND INTERACTIVE DESIGNER REPORTED ABLE TO OBTAIN RATE AND RHYTHM. CALL MANE IN REACH AND BED LOCKED IN LOWEST POSITION, WILL CONTINUE TO MONITOR.
[2021-07-22 08:20] VITALS: BP 149/74
[2021-07-22 11:34] VITALS: BP 123/64
--- NOTE | 2021-07-22 12:00 | NUR ---
SITTING UP AT BEDSIDE WITH MEAL SERVED, REFUSED MEAL, ALL OTHER NEEDS ADDRESSED, CALL MANE IN REACH.
[2021-07-22 15:00] VITALS: BP 130/82
--- NOTE | 2021-07-22 16:00 | NUR ---
RESTING IN BED AND C/O HAVING DIFFICULTY BREATHING, ON ASSESSMENT O2 CANULA OFF FACEIN BED, O2 REPLACED, PT REPORTED FEELING BETTER AFTER FEW MINUTES WHEN REASSESSED.
--- NOTE | 2021-07-22 19:05 | NUR ---
REPORT FROM MIGUEL DOBSON. ASSUMED PT CARE.
[2021-07-22 19:29] VITALS: BP 151/70
--- NOTE | 2021-07-22 20:47 | NUR ---
PT BROTHER DENNISE TIAN UPDATED VIA TELEPHONE UPON REQUEST, PASSCODE VERIFIED.
--- NOTE | 2021-07-22 23:59 | NUR ---
PT RESTING IN BED WITH EYES CLOSED. NO APPARENT DISTRESS NOTED. O2 @ 3.5L/M VIA NC. CALL LIGHT WITHIN REACH. WILL CONTINUE TO MONITOR.
[2021-07-23 00:43] VITALS: BP 149/71
[2021-07-23 03:52] VITALS: BP 138/90
--- NOTE | 2021-07-23 04:05 | NUR ---
BAGGAGE SCREENER AT BEDSIDE TO COLLECT MORNING LABS.
[2021-07-23 05:01] VITALS: BP 169/81
[2021-07-23 05:39] LABS: HEMATOCRIT 46.1 % (39.0-50.0); MEAN CELL VOLUME 106.2 fL CALC (80.0-100.0); MEAN CORPUSCULAR HGB 34.6 pG CALC (26.0-32.0); MEAN CORPUSCULAR HGB CONC 32.5 g/dL CAL (32.0-36.0); RED BLOOD COUNT 4.34 mill/uL (4.70-6.10); RED CELL DISTRI WIDTH 12.8 % (11.5-15.5)
[2021-07-23 06:09] LABS: ANION GAP 12 (6-22 (CALC)); BUN 27 mg/dL (8-23); BUN/CREATININE RATIO 27 (12-20 (CALC)); CARBON DIOXIDE 27 mmol/l (22-30); CHLORIDE 109 mmol/l (95-108); GFR > 60 ML/MIN (>=60 (CALC)); GFR FOR AFR.AMER. > 60 ML/MIN (>=60 (CALC)); MAGNESIUM 2.9 mg/dL (1.6-2.3); POTASSIUM 4.2 mmol/l (3.5-5.1); SODIUM 144 mmol/l (137-146)
[2021-07-23 09:39] VITALS: BP 147/76
--- NOTE | 2021-07-23 10:35 | NUR ---
PHYSICAL THERAPY AT BEDSIDE
--- NOTE | 2021-07-23 10:50 | NUR ---
DR WINSTON AND Taya LORENZO APRN AT BEDSIDE DISCUSSING POC
[2021-07-23 11:06] VITALS: BP 134/79
[2021-07-23] MEDS ORDERED: MUCINEX600 MG PO (11:11)
[2021-07-23] MEDS ORDERED: XARELTO20 MG PO (11:12)
[2021-07-23] MEDS ORDERED: OMNICEF300 M1 PO (11:13)
[2021-07-23] MEDS ORDERED: ZITHROMAX500 MG PO (11:13)
[2021-07-23] MEDS ORDERED: MEDDOSEPAK PO (11:14)
[2021-07-23] MEDS ORDERED: LOPRESSOR 550 MG/TAB PO (11:14)
[2021-07-23] MEDS ORDERED: TESSALON PERLE100 MG PO (11:15)
--- NOTE | 2021-07-23 12:21 | NUR ---
pt sitting on the side of the bed eating lunch. no needs reported at this time. call light within reach.
--- NOTE | 2021-07-23 14:58 | NUR ---
REPORT GIVEN TO LUISA POLANCO
--- NOTE | 2021-07-23 15:36 | NUR ---
Discharge instructions given. Patient verbalizes understanding of same. Discharged in stable condition via WC to [facility] accompanied by staff. All belongings sent with pt.
== END 2021-07-23 15:36 | DRG 191 ==
LOC: ED 07:31 → ED-I 08:55 → ED 09:19 → ICU 09:20 → MS2 22:07
PROVIDERS: Emergency Medicine; ADMIT Hospitalist; ATTEND Hospitalist
PROC: 5A09357 Assistance with Respiratory Ventilation, Less than 24 Consecutive Hours, Continuous Positive Airway Pressure (ICD-10-PCS; principal; 2021-07-20)
DX: J44.1 Chronic obstructive pulmonary disease with (acute) exacerbation (principal); J96.11 Chronic respiratory failure with hypoxia; E03.9 Hypothyroidism, unspecified; I48.91 Unspecified atrial fibrillation; E86.0 Dehydration; J30.2 Other seasonal allergic rhinitis; F41.9 Anxiety disorder, unspecified; F32.A Depression, unspecified; K21.9 Gastro-esophageal reflux disease without esophagitis; Z87.891 Personal history of nicotine dependence; Z99.81 Dependence on supplemental oxygen; Z20.822 Contact with and (suspected) exposure to COVID-19
CPT/HCPCS: J1650; J3475